=== PATIENT | male | born 1975 | race Caucasian/White ===

== ENCOUNTER 2018-06-19 20:47 | Emergency (ER) | payer OTHER, SELFPAY ==
[2018-06-19 20:48] VITALS: BP 116/77; PULSE 92; RESP 16; TEMP 36.9; O2SAT 97; BMI 35.2
--- NOTE | 2018-06-19 21:07 | RAD_ITS ---
STUDY: X-RAY - SOFT TISSUE NECK REASON FOR EXAM: Male, 43 years old. .Toothpick stuck in throat today. Unable to cough it out. TECHNIQUE: 2 view(s) of the neck were obtained. COMPARISON: None. FINDINGS: Normal visualized nasopharynx, oropharynx, hypopharynx. Normal epiglottis. Normal visualized subglottic tracheal air column. Normal prevertebral soft tissue structures. There are minimal degenerative changes of lower cervical spine The soft tissue structures are unremarkable. There is no visualized opaque foreign body. RAD/Neck for Soft Tissue IMPRESSION: Normal x-ray soft tissue neck. No visualized opaque foreign body. Electronically Signed: Rui Dennison DO at 21:22 EST Tel [phone], Service support ,
--- NOTE | 2018-06-19 21:10 | RAD_ITS ---
STUDY: X-RAY CHEST REASON FOR EXAM: Male, 43 years old. 2 SPECT, throat today. Unable to cough it out. TECHNIQUE: PA and lateral views of the chest. COMPARISON: July 03, 2017. FINDINGS: Lungs are well expanded. There is no focal mass or infiltrate. There is no demonstrated pleural abnormality. Normal size heart. Normal mediastinum and jean. Normal visualized pulmonary arteries. Normal visualized aortic arch and descending thoracic aorta. Normal visualized thoracic spine. Normal visualized ribs, clavicles, and shoulders. There is no demonstrated abnormality of the visualized soft tissue structures of the upper abdomen. RAD/Chest PA and Lateral IMPRESSION: No acute cardiopulmonary disease or interval change. There is no visualized opaque foreign body. Electronically Signed: Rui Dennison DO at 21:22 EST Tel [phone], Service support ,
--- NOTE | 2018-06-19 22:31 | CT_ITS ---
STUDY: CT SOFT TISSUE NECK WITHOUT CONTRAST REASON FOR EXAM: Male, 43 years old. Toothpick in throat RADIATION DOSAGE (If Supplied By Facility): CTDIvol = ( 23.60 ) mGy, DLP = ( 636.47 ) mGycm TECHNIQUE: The patient was scanned in a multi-detector CT scanner. High resolution transaxial imaging was performed without the administration of intravenous contrast material. Sagittal and coronal images were reconstructed. Individualized dose optimization techniques were used for this CT. COMPARISON: None. FINDINGS: Normal bilateral parotid glands. Normal bilateral manager generation spaces. Normal bilateral parapharyngeal spaces. Normal bilateral carotid spaces. Normal bilateral sublingual and submandibular glands and spaces. Normal visualized nasopharynx. Normal retropharyngeal space. Normal perivertebral space. Normal visualized bilateral faucial tonsils. The visualized tongue, tongue base and oropharynx are normal. The visualized cervical lymph nodes (levels I-) are within normal size limits, and maintain normal morphology. There is no demonstrated solid or cystic mass lesion. Within the left lateral oropharyngeal wall there is a small hyper attenuated structure measuring 6 mm which may be consistent with clinical history of embedded tooth pick Normal epiglottis, bilateral vallecula and hypopharynx. The pre-epiglottic and paraglottic adipose spaces are normal. Normal visualized bilateral piriform sinuses, aryepiglottic folds, vocal cords, and arytenoid-cricoid articulations. Normal subglottic trachea. Normal bilateral lobes of the thyroid gland. Normal visualized pulmonary apices. Normal visualized paranasal sinuses. Dorsal spine demonstrates moderate spondylosis CT/Soft Tissue Neck without Contr IMPRESSION: Linear hyperattenuated structure within the left lateral oropharyngeal wall which may be consistent with embedded toothpick. Clinical correlation recommended Electronically Signed: Oziel Ramirez MD at 23:00 EST , Service support ,
[2018-06-19 23:00] VITALS: BP 150/94; PULSE 82; RESP 18; O2SAT 98
[2018-06-20] MEDS: Cefazolin 2 GM in 0.9% Normal Saline 100 ML IV (00:05)
[2018-06-20 00:15] LABS: Absolute Lymphocyte Count 2.26 X10^3/ul (0.83-4.51); Absolute Neutrophil Count 3.8 X10^3/uL (2.0-7.7); Basophil# 0.03 X10^3/uL; Basophil% 0.4 % (0-1); Eosinophil# 0.28 X10^3/uL; Eosinophils% 3.8 % (0-5); Hematocrit 44.8 % (40-54); Hemoglobin 15.2 g/dl (13.0-16.5); Lymphocyte # 2.26 X10^3/ul (4.0); Lymphocyte % 30.8 % (19-41); Mean Corp Hgb Conc 33.9 g/gl (32-36); Mean Corpuscular Volume 85.5 fL (80-94); Mean Platelet Vol. 9.8 fl (6.2-12.0); Monocyte# 0.99 X10^3/uL; Monocyte% 13.5 % (0-10); Neutrophil # 3.76 X10^3/uL (2.7-7.7); Neutrophil % 51.2 % (47-70); POSITIVE COUNT NO; POSITIVE DIFFERENTIAL NO; POSITIVE MORPHOLOGY NO; Platelet Count 273 K/mm3 (150-450); RBC Distribution Width CV 12.9 % (11.6-14.6); Red Blood Count 5.24 M/mm3 (4.6-6.2); White Blood Count 7.3 K/mm3 (4.4-11.0)
--- NOTE | 2018-06-20 00:18 | ED.DCSUM_ITS ---
- ER Visit Summary Date of Service: 06/20/18 Chief Complaint: Foreign body in throat History of Present Illness: The patient is a 43 M who states that today around 1300 hrs. he was eating a wrap. He felt something in his throat and noticed that there was only one toothpick and believes that he is swallowed a toothpick and that is lodged in the throat. He denies any change in phonation. He denies any drooling. Symptoms have been constant. He points to the larynx as the source of his discomfort. Physical Examination: Afebrile vital signs are stable Gen: Well-nourished well-developed Head: Normocephalic atraumatic Eyes: Perrl EOMI ENT: TMs clear no rhinorrhea moist mucous membranes patient is laying back in the bed. There is no drooling. Neck: Supple no lymphadenopathy no JVD nontender CVS: Regular rate rhythm no murmurs normal S1-S2 Respiratory: No distress clear to auscultation bilaterally chest nontender Abdomen: Soft nontender nondistended normal bowel sounds no masses Back: Nontender Extremity: Nontender no edema Skin: Normal color no rash Neuro: alert orientated ?3 CN II-XII intact normal strength sensation reflexes gait cerebellar Psych: Normal affect normal mood Test Results: X-rays were obtained through nursing protocol. These were negative for foreign body. CT of the neck without contrast demonstrates a foreign body in the left pharyngeal tissue. Emergency Department Course and Treatment: There is no ENT coverage on today. Patient has been accepted to [facility]. Prior to transfer he received Ancef and basic labs were drawn. Impression: 1. Pharyngeal foreign body This note was generated with [employer] dictation software. It may contain incorrect words, spelling, and punctuation that were not noted in review of the chart prior to signing ED Disposition - Plan for ED Patient: Chief Complaint: Foreign Body Referrals: Mc Gunderson III, MD [Primary Care Provider] -
[2018-06-20 00:29] LABS: BUN 18 mg/dL (7-18); Creatinine, Serum 0.91 mg/dL (0.70-1.30); Estimated Creatinine Clearance 97.86 ml/min; Glucose 82 mg/dL (74-106)
[2018-06-20 00:30] LABS: Anion Gap 6 (5-15); BUN/Creat Ratio 19.8 RATIO (10-20); Calcium,Total 8.2 mg/dL (8.5-10.1); Chloride 105 mmol/L (98-107); EST Glomerular Filtration Rate 97 mL/min (>60); Est Glom Filt Rate - Afr Amer 117 mL/min (>60); Potassium 3.8 mmol/L (3.5-5.1); Sodium Level 138 mmol/L (136-145)
== END 2018-06-20 00:58 | disposition short-term general hospital (02) ==
PROVIDERS: Emergency Provider Emergency Medicine; Family Provider Family Medicine; PCP Family Medicine
DX: T17.228A Food in pharynx causing other injury, initial encounter (principal); X58.XXXA Exposure to other specified factors, initial encounter; Y93.9 Activity, unspecified; Y92.9 Unspecified place or not applicable; I10 Essential (primary) hypertension; Z87.19 Personal history of other diseases of the digestive system; Z79.899 Other long term (current) drug therapy
CPT/HCPCS: 70360; 70490; 71046; 80048; 85025; 96365; 99284; J7030

== ENCOUNTER → 2018-07-03 09:31 | Outpatient (CLI) | payer OTHER, SELFPAY ==
[2018-07-03 09:27] VITALS: BMI 35.2
--- NOTE | 2018-07-03 09:32 | RAD_ITS ---
STUDY: X-RAY - RIGHT SHOULDER REASON FOR EXAM: Male, 43 years old. Chronic right shoulder pain. TECHNIQUE: 3 view(s) of the shoulder. COMPARISON: None. FINDINGS: Normal glenohumeral articulation. Normal acromioclavicular joint. Normal acromion. Normal humeral head and visualized proximal humerus. The soft tissue structures are unremarkable. Right basilar atelectasis. RAD/Shoulder min 2 Views IMPRESSION: Normal x-ray examination of the shoulder. Right basilar atelectasis. Electronically Signed: Romie Fish MD at 15:44 EST Tel [phone], Service support ,
== END ==
PROVIDERS: Family Provider Family Medicine; PCP Family Medicine; Referring Provider Physician Assistant; Visit Provider Physician Assistant
DX: M25.511 Pain in right shoulder (principal)
CPT/HCPCS: 73030

== ENCOUNTER → 2018-07-12 06:37 | Outpatient (CLI) | payer OTHER, SELFPAY ==
[2018-07-03 09:27] VITALS: BMI 35.2
--- NOTE | 2018-07-12 06:41 | MRI_ITS ---
STUDY: MRI RIGHT SHOULDER REASON FOR EXAM: Anterior right shoulder pain, limited range of motion since August. TECHNIQUE: Standardized fat and water weighted pulse sequences were obtained in all 3 orthogonal planes. COMPARISON: Radiographs 07/03/2018. FINDINGS: There is mild supraspinatus tendinosis and a small intrasubstance partial-thickness tear of the distal supraspinatus tendon at the greater tuberosity insertion (T2 coronal image 13) measuring 0.2 cm in length. Normal infraspinatus tendon. Normal subscapularis tendon. Normal teres minor tendon. Normal supraspinatus muscle. Normal infraspinatus muscle. Normal subscapularis muscle. Normal teres minor muscle. Normal glenohumeral articulation. Normal humeral head and visualized proximal humerus. Normal biceps labral complex. There is mild tendinosis of the intracapsular long biceps tendon (T2 coronal images 15, 16). Normal labrum. Normal capsulo- ligamentous complex. There is mild acromioclavicular arthrosis without substantial undersurface osteophytes (T2 sagittal image 16). There is a Type I morphology (flat undersurface), with a mild anterior downsloping orientation. There is no subacromial-subdeltoid bursal fluid. Normal visualized coracohumeral and coracoacromial ligaments. Normal deltoid muscle. Normal trapezius muscle. MRI/Upper Ext Joint Only(Routine) IMPRESSION: Small intrasubstance partial-thickness tear and mild tendinosis of the supraspinatus tendon. Mild tendinosis of the long biceps tendon. Mild acromioclavicular arthrosis. No demonstrated SLAP lesion. Electronically Signed: Bismark Sharp MD at 8:22 EST Tel , Service support ,
--- OUTSIDE RECORDS SUMMARY | 2018-08-28 00:19 | XMS RPT_ITS ---
:1975 Author Organization OH[facility] Care Team Providers Name Role Phone KIT VILCHIS Admitting Unavailable KIT VILCHIS Attending Unavailable EMMANUEL GALLEGOS Primary Care Unavailable Cebul III, Mc Primary Care Unavailable Jase Jimenez Attending Unavailable Issa Paz Attending Unavailable Cebul IIIMc Referring Unavailable Issa Paz Attending Unavailable Issa Paz Referring Unavailable Cebul III, Mc Primary Care Unavailable Issa Paz Attending Unavailable Issa Paz Referring Unavailable Cebul III, Mc Primary Care Unavailable PROBLEMS PROBLEMS DATE TYPE CONDITION / CODE ATTENDING STATUS SOURCE 07/03/2018 Unknown M25.511 - Pain in Issa Paz Active [facility] right shoulder / Community M25.511(ICD-10) Hospital Repository 07/03/2018 Unknown S43.439A - Issa Paz Active [facility] Superior glenoid [facility] labrum lesion of Hospital unspecified Repository shoulder, initial encounter / S43.439A(ICD-10) 06/30/2018 Active OTH SPEC SX SIGNS SHUNDRY, Active [facility] INVLV CIRC [facility] R09.89(ICD-10) Repository 06/30/2018 Principle OTH FOREIGN OBJ SHUNDRY, Active [facility] Diagnosis PHAR OTH INJ INIT [facility] / T17.298A(ICD-10) Repository 06/30/2018 Secondary OTH SPEC SX SIGNS SHUNDRY, Active [facility] Diagnosis INVLV CIRC [facility] R09.89(ICD-10) Repository 06/30/2018 Secondary ESSENTIAL PRIMARY SHUNDRY, Active [facility] Diagnosis HYPERTENSION / [facility] I10(ICD-10) Repository 06/30/2018 Secondary PERSONAL HX OTH DZ SHUNDRY, Active [facility] Diagnosis DIGESTIVE SYSTEM / [facility] Z87.19(ICD-10) Repository 06/30/2018 Secondary ACQ ABSENCE OTH SHUNDRY, Active [facility] Diagnosis PART DIGESTV TRACT [facility] / Z90.49(ICD-10) Repository PROCEDURES PROCEDURES No Procedure Records FoundRESULTS RESULTS UPPER EXT JOINT Observed: 07/12/2018 Status: F Source: [place] ONLY(ROUTINE) 6:41 AM [facility] REPOSITORY [facility] Imaging Services [address] [place] [address] Upper Ext Joint Only(Routine) MR#: [id number] Acct: [id number] Name: JESUS WEISS Rep #: [id number] : 1975 M 43 From: Bismark Sharp MD PCP: Mc Gunderson III, MD Status: REG CLI Study: Upper Ext Joint Only(Routine) Date of Exam: 07/12/18 Exam# [id number] Ordering Dr: Issa Paz PA STUDY: MRI RIGHT SHOULDER REASON FOR EXAM: Anterior right shoulder pain, limited range of motion since August. TECHNIQUE: Standardized fat and water weighted pulse sequences were obtained in all 3 orthogonal planes. COMPARISON: Radiographs 07/03/2018. FINDINGS: There is mild supraspinatus tendinosis and a small intrasubstance partial-thickness tear of the distal supraspinatus tendon at the greater tuberosity insertion (T2 coronal image 13) measuring 0.2 cm in length. Normal infraspinatus tendon. Normal subscapularis tendon. Normal teres minor tendon. Normal supraspinatus muscle. Normal infraspinatus muscle. Normal subscapularis muscle. Normal teres minor muscle. Normal glenohumeral articulation. Normal humeral head and visualized proximal humerus. Normal biceps labral complex. There is mild tendinosis of the intracapsular long biceps tendon (T2 coronal images 15, 16). Normal labrum. Normal capsulo- ligamentous complex. There is mild acromioclavicular arthrosis without substantial undersurface osteophytes (T2 sagittal image 16). There is a Type I morphology (flat undersurface), with a mild anterior downsloping orientation. There is no subacromial-subdeltoid bursal fluid. Normal visualized coracohumeral and coracoacromial ligaments. Normal deltoid muscle. Normal trapezius muscle. MRI/Upper Ext Joint Only(Routine) IMPRESSION: Small intrasubstance partial-thickness tear and mild tendinosis of the supraspinatus tendon. Mild tendinosis of the long biceps tendon. Mild acromioclavicular arthrosis. No demonstrated SLAP lesion. Electronically Signed: Bismark Sharp MD at 8:22 EST Tel , Service support , CC: ANKUR Paz; Mc Gunderson III, MD Cylinder Die Machine Operator: Signed ORTHOPEDIC VISIT Observed: 07/05/2018 Status: F Source: [place] REPORT 11:57 AM [facility] REPOSITORY [facility] [address] [place] [address] OFFICE VISIT Date of Service: 07/03/18 MR#: [id number] Acct: [id number] Name: JESUS WEISS Rep #: [id number] : 1975 Provider: ANKUR Paz Age/Sex: 43/M Location: [facility] Status: Signed Intake Vital Signs07/03/18 Body Mass Index (BMI) 35.2 Intake Visit Reasons: RIGHT SHOULDER Is patient in pain?: Yes Pain scale (1-10): 6 Allergies venom-honey bee [bee venom (honey bee)] Allergy (Verified 06/19/18 20:48) Swelling Medications Lisinopril [Zestril] 10 mg PO DAILY #30 tab 07/04/17 [Rx Confirmed 06/19/18] PFSH Social History Smoking Status: Former smoker HPI RIGHT SHOULDER: Details: JESUS WEISS is a 43 year old M here today for right shoulder pain. Patient notes that he has had right shoulder pain since Aug with no known injury. He states that he lifts weights and might have lifted too heavy with a bench press. He has pain over his anterior shoulder. Patient has increased pain range of motion, throwing and weightlifting. He denies any deformity. Patient did a HEP for about 2 months which hasnt improved his shoulder. Patient denies any injections, MRI or xrays. Denies numbness, tingling or other associated symptoms. ROS Const Reports system reviewed and no additional complaints, except as docu Eyes Reports system reviewed and no additional complaints, except as docu ENT Reports system reviewed and no additional complaints, except as docu Card Reports system reviewed and no additional complaints, except as docu Resp Reports system reviewed and no additional complaints, except as docu GI Reports system reviewed and no additional complaints, except as docu Reports system reviewed and no additional complaints, except as docu Musc Reports joint pain Skin/Breast Reports system reviewed and no additional complaints, except as docu Neuro Yes system reviewed and no additional complaints, except as docu Psych Reports system reviewed and no additional complaints, except as docu Endo Reports system reviewed and no additional complaints, except as docu Ortho Exam Right Shoulder Skin/Wound: No ecchymosis Testing: Positive TTP Biceps (minimal), AROM-Forward Elevation 0-180, AROM-External Rotation at side 0-60 and AROM-External Rotation at 90 0-60; negative Hawkin's, Neer's, Speed's, TTP AC Joint, Yergason's, Apprehension Test, Sulcus Sign or empty can Internal Rotation: T12 SHOULDER: At this time patient has no evident abnormalities noted on inspection. He has no generalized or localized swelling of the shoulder. He has full range of motion in the shoulder and normal 5 out of 5 strength compared to the left side. He does not have any tenderness to the biceps and a negative speeds at the same time he does have a positive Hollis test with some minimal anterior shoulder tenderness. Assessment AND Plan Problems 1. Acute pain of right shoulder M25.511 2. Strain of right subscapularis muscle, initial encounter S46.863B 3. Superior glenoid labrum lesion of right shoulder, initial encounter S43.968M Plan Obtained Xrays of patient's right shoulder. Personally reviewed Xrays. There is no obvious fracture, dislocation, or lucency noted. See chart for further details. This time patient has no abnormalities on inspection of the shoulder. He has normal range of motion and 5 out of 5 strength. Minor anterior shoulder tenderness and a positive Hollis's really points more to a possible glenoid labral tear with possible subscapularis involvement. At this point we discussed options which include doing nothing, physical therapy, injection, or further imaging with MRI. 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 He has been using free weights as well as therapy bands for exercises. At this time being anterior shoulder tenderness I do not believe an injection is likely to provide him with great results. 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 He would strongly consider surgical intervention depending on the findings of the MRI. So because he has seen improvement playing rotator cuff exercises or with use of anti-inflammatories, we are going to order an MRI at this time. Patient will follow-up in the office to go over the MRI results. I did explain that our surgeon will be going on maternity leave and therefore he will not likely be able to have that done by the end of the year or the next 3 months. He states that he has a sooner if he is okay with possibly going somewhere else. He still would like to proceed with MRI today This note was generated with [employer] dictation software. It may contain incorrect words, spelling, and punctuation that were not noted in checking the note before signing. Orders Orders: Coding Level of Care Code Off vis,new,level 3 Diagnoses Acute pain of right shoulder M25.511 Chronicity: acute Strain of right subscapularis muscle, initial encounter S46.811A Encounter type: initial encounter Laterality: right Superior glenoid labrum lesion of right shoulder, initial encounter S43.431A Encounter type: initial encounter 07/05/18 1157 <Electronically signed by Issa PASCUAL> Date Issa PASCUAL Cosigner Signature: Date (if applicable) CC: SHOULDER MIN 2 VIEWS Observed: 07/03/2018 Status: F Source: [place] 9:33 AM [facility] REPOSITORY [facility] Imaging Services [address] [place] [address] Shoulder min 2 Views MR#: [id number] Acct: [id number] Name: JESUS WEISS Rep #: [id number] : 1975 M 43 From: Romie Fish MD PCP: Mc Gunderson III, MD Status: REG CLI Study: Shoulder min 2 Views Date of Exam: 07/03/18 Exam# [id number] Ordering Dr: Issa Paz STUDY: X-RAY - RIGHT SHOULDER REASON FOR EXAM: Male, 43 years old. Chronic right shoulder pain. TECHNIQUE: 3 view(s) of the shoulder. COMPARISON: None. FINDINGS: Normal glenohumeral articulation. Normal acromioclavicular joint. Normal acromion. Normal humeral head and visualized proximal humerus. The soft tissue structures are unremarkable. Right basilar atelectasis. RAD/Shoulder min 2 Views IMPRESSION: Normal x-ray examination of the shoulder. Right basilar atelectasis. Electronically Signed: Romie Fish MD at 15:44 EST Tel [phone], Service support , CC: ANKUR Paz; Mc Gunderson III, MD Cylinder Die Machine Operator: Signed EMERGENCY DEPARTMENT Observed: 06/20/2018 Status: F Source: [place] SUMMARY 6:51 AM [facility] REPOSITORY [facility] Medical Records Department [address] [place] [id number] Emergency Department Summary 06/20/18 0016 MR#: [id number] Acct: [id number] Name: JESUS WEISS Rep #: [id number] : 1975 43 From: Jase Jimenez DO PCP: Mc Gunderson III, MD Status: DEP ER - ER Visit Summary Date of Service: 06/20/18 Chief Complaint: Foreign body in throat History of Present Illness: The patient is a 43 M who states that today around 1300 hrs. he was eating a wrap. He felt something in his throat and noticed that there was only one toothpick and believes that he is swallowed a toothpick and that is lodged in the throat. He denies any change in phonation. He denies any drooling. Symptoms have been constant. He points to the larynx as the source of his discomfort. Physical Examination: Afebrile vital signs are stable Gen: Well-nourished well-developed Head: Normocephalic atraumatic Eyes: Perrl EOMI ENT: TMs clear no rhinorrhea moist mucous membranes patient is laying back in the bed. There is no drooling. Neck: Supple no lymphadenopathy no JVD nontender CVS: Regular rate rhythm no murmurs normal S1-S2 Respiratory: No distress clear to auscultation bilaterally chest nontender Abdomen: Soft nontender nondistended normal bowel sounds no masses Back: Nontender Extremity: Nontender no edema Skin: Normal color no rash Neuro: alert orientated 3 CN II-XII intact normal strength sensation reflexes gait cerebellar Psych: Normal affect normal mood Test Results: X-rays were obtained through nursing protocol. These were negative for foreign body. CT of the neck without contrast demonstrates a foreign body in the left pharyngeal tissue. Emergency Department Course and Treatment: There is no ENT coverage on today. Patient has been accepted to [facility]. Prior to transfer he received Ancef and basic labs were drawn. Impression: 1. Pharyngeal foreign body This note was generated with [employer] dictation software. It may contain incorrect words, spelling, and punctuation that were not noted in review of the chart prior to signing ED Disposition - Plan for ED Patient: Chief Complaint: Foreign Body Referrals: Mc Gunderson III, MD [Primary Care Provider] - What to do if you have Problems For any increased pain, shortness of breath, bleeding, nausea or vomiting, chest pain, or any unexpected problems, contact your Primary Care Provider. Call [facility] ([phone]) or report to the closest Emergency Room. Call 911 if necessary. 06/20/18 0651 <Electronically signed by Jase Jimenez DO> Date Jase Jimenez DO Cosigner Signature (If Indicated): Date CC: Mc Gunderson III, MD CBC W/DIFF, AUTOMATED Collected: 06/20/2018 Status: F Source: [place] 12:08 AM [facility] REPOSITORY TYPE CODE TESTS RESULT OUT OF RANGE REFERENCE UNITS LAB L100.1000 4.4-11.0 K/mm3 Normal WBC 7.3 LAB L100.1200 4.6-6.2 M/mm3 Normal RBC 5.24 LAB L100.1300 13.0-16.5 g/dl Normal HGB 15.2 LAB L100.1400 40-54 % Normal HCT 44.8 LAB L100.1500 80-94 fL Normal MCV 85.5 LAB L100.1600 27.0-32.0 pg Normal MCH 29.0 LAB L100.1700 32-36 g/gl Normal MCHC 33.9 LAB L100.1810 11.6-14.6 % Normal RDW CV 12.9 LAB L100.1820 35.1-43.9 fl Normal RDW SD 40.0 LAB L100.1900 150-450 K/mm3 Normal PLT 273 LAB L100.2000 6.2-12.0 fl Normal MPV 9.8 LAB L100.2100 47-70 % Normal NEUT% 51.2 LAB L100.2200 19-41 % Normal LY% 30.8 LAB L100.2300 0-10 % High MONO% 13.5 LAB L100.2400 0-5 % Normal EO% 3.8 LAB L100.2500 0-1 % Normal BASO% 0.4 LAB L100.2550 0.0-0.9 % Normal IM GRAN % 0.300 Result Comment: IG% - Immature Granulocytes (promyelocytes, myelocytes and metamyelocytes) > 1% indicates that a LEFT SHIFT is Present. LAB L100.2620 2.0-7.7 X10 3/uL Normal Absolute Neut 3.8 LAB L100.2720 0.83-4.51 X10 3/ul Normal Absolute Lymph 2.26 Performed By: #### L100.0100 #### [facility] [address] [place] [address]. [place], [address] BASIC METABOLIC Collected: 06/20/2018 Status: F Source: [place] PROFILE (BMP) 12:08 AM [facility] REPOSITORY TYPE CODE TESTS RESULT OUT OF RANGE REFERENCE UNITS LAB L501.0100 74-106 mg/dL Normal GLU 82 Result Comment: Please note revised GLUCOSE reference range effective 2017. LAB L501.1000 7-18 mg/dL Normal BUN 18 LAB L501.1100 0.70-1.30 mg/dL Normal CREAT,SERUM 0.91 Result Comment: The validity of the calculated GFR AND GFRAA in patients over 70 years has not been determined. Clinical correlation is essential. LAB L501.1110 >60 mL/min Normal EST GFR 97 Result Comment: Non- GFR Calc LAB L501.1115 >60 mL/min Normal EST GFR - AA 117 Result Comment: GFR Calc LAB L501.1255 ml/min Normal Estimated CRCL 97.86 LAB L501.1300 10-20 RATIO Normal BUN/CRE 19.8 LAB L501.2200 8.5-10 mg/dL Low .1 CA 8.2 LAB L501.5300 136-14 mmol/L Normal 5 NA 138 LAB L501.5600 3.5-5. mmol/L Normal 1 K 3.8 LAB L501.5900 98-107 mmol/L Normal CL 105 LAB L501.6100 21.0-3 mmol/L Normal 2.0 CO2 27.0 LAB L501.6200 5-15 Normal GAP 6 Performed By: #### L500.2500 #### [facility] [address] [facility] [place] [place], [address] SOFT TISSUE NECK Observed: 06/19/2018 Status: F Source: [place] WITHOUT CONTR 10:31 PM [facility] REPOSITORY [facility] Imaging Services [address] [place] [address] Soft Tissue Neck without Contr MR#: [id number] Acct: [id number] Name: JESUS WEISS Rep #: [id number] : 1975 M 43 From: Oziel Ramirez MD PCP: Mc Gunderson III, MD Status: DEP ER Study: Soft Tissue Neck without Contr Date of Exam: 06/19/18 Exam# [id number] Ordering Dr: Jase Jimenez DO ADDENDUM by Prem Tiwari on 06/20/18 at 0320 ADDENDUM Linear density in question is most likely benign calcification or salivary duct stone. A wooden toothpick would not the radiodense. Findings were discussed by telephone with ENT physician. Electronically Signed: Prem Tiwari MD at 3:20 EST , Service support , 06/20/18319 Date cc: Jase Jimenez DO; Mc Gunderson III, MD * Signed ADDENDUM by Prem Tiwari on 06/20/[address]/Soft Tissue Neck without Contr 06/20/18326 Date cc: Jase Jimenez DO; Mc Gunderson III, MD * Signed STUDY: CT SOFT TISSUE NECK WITHOUT CONTRAST REASON FOR EXAM: Male, 43 years old. Toothpick in throat RADIATION DOSAGE (If Supplied By Facility): CTDIvol = ( 23.60 ) mGy, DLP = ( 636.47 ) mGycm TECHNIQUE: The patient was scanned in a multi-detector CT scanner. High resolution transaxial imaging was performed without the administration of intravenous contrast material. Sagittal and coronal images were reconstructed. Individualized dose optimization techniques were used for this CT. COMPARISON: None. FINDINGS: Normal bilateral parotid glands. Normal bilateral continuous towel roller spaces. Normal bilateral parapharyngeal spaces. Normal bilateral carotid spaces. Normal bilateral sublingual and submandibular glands and spaces. Normal visualized nasopharynx. Normal retropharyngeal space. Normal perivertebral space. Normal visualized bilateral faucial tonsils. The visualized tongue, tongue base and oropharynx are normal. The visualized cervical lymph nodes (levels I-) are within normal size limits, and maintain normal morphology. There is no demonstrated solid or cystic mass lesion. Within the left lateral oropharyngeal wall there is a small hyper attenuated structure measuring 6 mm which may be consistent with clinical history of embedded tooth pick Normal epiglottis, bilateral vallecula and hypopharynx. The pre-epiglottic and paraglottic adipose spaces are normal. Normal visualized bilateral piriform sinuses, aryepiglottic folds, vocal cords, and arytenoid-cricoid articulations. Normal subglottic trachea. Normal bilateral lobes of the thyroid gland. Normal visualized pulmonary apices. Normal visualized paranasal sinuses. Dorsal spine demonstrates moderate spondylosis CT/Soft Tissue Neck without Contr IMPRESSION: Linear hyperattenuated structure within the left lateral oropharyngeal wall which may be consistent with embedded toothpick. Clinical correlation recommended Electronically Signed: Oziel Ramirez MD at 23:00 EST , Service support , CC: Jase Jimenez DO; Mc Gunderson III, MD Cylinder Die Machine Operator: Signed CHEST PA AND LATERAL Observed: 06/19/2018 Status: F Source: [place] 9:07 PM [facility] REPOSITORY [facility] Imaging Services [address] [place] [address] Chest PA and Lateral MR#: [id number] Acct: [id number] Name: JESUS WEISS Rep #: [id number] : 1975 M 43 From: Rui Dennison DO PCP: Mc Gunderson III, MD Status: REG ER Study: Chest PA and Lateral Date of Exam: 06/19/18 Exam# [id number] Ordering Dr: Adolfo Villatoro STUDY: X-RAY CHEST REASON FOR EXAM: Male, 43 years old. 2 SPECT, throat today. Unable to cough it out. TECHNIQUE: PA and lateral views of the chest. COMPARISON: July 03, 2017. FINDINGS: Lungs are well expanded. There is no focal mass or infiltrate. There is no demonstrated pleural abnormality. Normal size heart. Normal mediastinum and jean. Normal visualized pulmonary arteries. Normal visualized aortic arch and descending thoracic aorta. Normal visualized thoracic spine. Normal visualized ribs, clavicles, and shoulders. There is no demonstrated abnormality of the visualized soft tissue structures of the upper abdomen. RAD/Chest PA and Lateral IMPRESSION: No acute cardiopulmonary disease or interval change. There is no visualized opaque foreign body. Electronically Signed: Rui Dennison DO at 21:22 EST Tel [phone], Service support , CC: ED PHYSICIAN PROVIDER; Mc Gunderson III, MD Cylinder Die Machine Operator: Signed NECK FOR SOFT Observed: 06/19/2018 Status: F Source: [place] TISSUE 9:07 PM [facility] REPOSITORY [facility] Imaging Services [address] [place] [address] Neck for Soft Tissue MR#: [id number] Acct: [id number] Name: JESUS WEISS Rep #: [id number] : 1975 M 43 From: Rui Dennison DO PCP: Mc Gunderson III, MD Status: REG ER Study: Neck for Soft Tissue Date of Exam: 06/19/18 Exam# [id number] Ordering Dr: Provider,Ed P. STUDY: X-RAY - SOFT TISSUE NECK REASON FOR EXAM: Male, 43 years old. .Toothpick stuck in throat today. Unable to cough it out. TECHNIQUE: 2 view(s) of the neck were obtained. COMPARISON: None. FINDINGS: Normal visualized nasopharynx, oropharynx, hypopharynx. Normal epiglottis. Normal visualized subglottic tracheal air column. Normal prevertebral soft tissue structures. There are minimal degenerative changes of lower cervical spine The soft tissue structures are unremarkable. There is no visualized opaque foreign body. RAD/Neck for Soft Tissue IMPRESSION: Normal x-ray soft tissue neck. No visualized opaque foreign body. Electronically Signed: Rui Dennison DO at 21:22 EST Tel [phone], Service support , CC: ED PHYSICIAN PROVIDER; Mc Gunderson III, MD Cylinder Die Machine Operator: Signed PROGRESS Observed: 10/19/2017 Status: COMPLETED Source: [place] 6:17 PM [facility] REPOSITORY HNO ID: [id number] Author: Lynn Barclay) CHANA Oliva Service: (none) Author Type: Nurse Practitioner Type: Progress Notes Filed: 10/19/2017 6:23 PM Note Text: Subjective HPI Patient is a 42 year old male here today for a week long history of sore throat. States he had left over amoxicillin and used that at the onset but only had 3 doses. States the pain is worse at night but is constant. Denies recent URI. Nothing makes it better. No fever. No other concerns at this time. Review of Systems Constitutional: Negative for chills, fever and malaise/fatigue. HENT: Positive for sore throat. Respiratory: Negative. Cardiovascular: Negative. Musculoskeletal: Negative for myalgias. Neurological: Negative for headaches. All other systems reviewed and are negative. PAST MEDICAL HISTORY Diagnosis Date - Acute idiopathic pericarditis 07/17/2017 07/03/17 - Benign hypertension 03/25/2015 PAST SURGICAL HISTORY Procedure Laterality Date - APPENDECTOMY 2003 - VASECTOMY ALLERGIES Bees; Dilaudid [Hydromorphone] MEDICATIONS lisinopril (ZESTRIL, PRINIVIL) 20 mg tablet Take 1 tablet by mouth once daily. benzonatate (TESSALON PERLE) 100 mg capsule Take 1-2 capsules by mouth three times daily as needed. fluticasone (FLONASE) 50 mcg/actuation nasal spray Use 2 Sprays in each nostril once daily. Rinse mouth after use. ibuprofen (MOTRIN) 600 mg tablet Take 600 mg by mouth three times daily. No family history on file. Social History Substance Use Topics - Smoking status: Former Smoker - Smokeless tobacco: Former User Types: Chew - Alcohol use Yes Comment: weekends BP 122/94 Pulse 92 Temp 36.6 ?C (97.8 ?F) (Left Tympanic) Resp 18 Wt 101.6 kg (224 lb) BMI 34.06 kg/m2 Objective Physical Exam Constitutional: He is oriented to person, place, and time and well-developed, well-nourished, and in no distress. Vital signs are normal. HENT: Head: Normocephalic and atraumatic. Right Ear: Tympanic membrane, external ear and ear canal normal. Left Ear: Tympanic membrane, external ear and ear canal normal. Nose: Nose normal. Mouth/Throat: Uvula is midline, oropharynx is clear and moist and mucous membranes are normal. No oropharyngeal exudate, posterior oropharyngeal edema, posterior oropharyngeal erythema or tonsillar abscesses. Mildly injected Neck: Neck supple. Cardiovascular: Normal rate, regular rhythm and normal heart sounds. Pulmonary/Chest: Effort normal and breath sounds normal. He has no wheezes. He has no rales. Lymphadenopathy: Head (right side): No submental, no submandibular and no tonsillar adenopathy present. Head (left side): No submental, no submandibular and no tonsillar adenopathy present. He has no cervical adenopathy. Neurological: He is alert and oriented to person, place, and time. Skin: Skin is warm and dry. He is not diaphoretic. Psychiatric: Affect normal. Nursing note and vitals reviewed. ASSESSMENT/PLAN: 1. Sore throat - ICD9: 462, ICD10: J02.9 - suspect viral - Rapid Strep negative in the office today and Throat culture pending - overnight throat culture pending - Tessalon Perle (see order) - Flonase (see order) - Advise not using ABX unless advised by a health rn home care - Discussed supportive care treatment with fluids, rest and analgesia. - The patient may also use warm salt water gargles, throat lozenges and/or OTC throat spray as needed. - The patient should follow up in 3-5 days if symptoms persist or worsen - RAPID STREP TEST B/O - GROUP A STREPTOCOCCUS BY PCR - BENZONATATE 100 MG CAPSULE - FLUTICASONE 50 MCG/ACTUATION NASAL SPRAY,SUSPENSION Prescription instructions reviewed with patient as applicable. Patient advised if symptoms do not improve or if symptoms worsen sooner, to contact their primary care physician. Potential red flag symptoms discussed with the patient. Reviewed appropriate action plan to take if red flag symptoms occur. Patient agreeable to treatment plan. Lynn Oliva APRN.COPYRIGHT CLERK CNOV Observed: 10/19/2017 Status: COMPLETED Source: [place] 5:45 PM [facility] REPOSITORY Office Visit (UCW[facility]) JESUS WEISS ([id number]) 1975 M Date Time Provider Department 10/19/17 5:45 PM LYNN OLIVA) [facility] During your visit today, we recorded the following information about you: Temperature Pulse Respiration Blood pressure 97.8 degrees 92/minute 18/minute 122/94 Weight 101.6 kg Lynn Oliva APRN.CNP, APRN.CNP 10/19/2017 6:23 PM Signed Subjective HPI Patient is a 42 year old male here today for a week long history of sore throat. States he had left over amoxicillin and used that at the onset but only had 3 doses. States the pain is worse at night but is constant. Denies recent URI. Nothing makes it better. No fever. No other concerns at this time. Review of Systems Constitutional: Negative for chills, fever and malaise/fatigue. HENT: Positive for sore throat. Respiratory: Negative. Cardiovascular: Negative. Musculoskeletal: Negative for myalgias. Neurological: Negative for headaches. All other systems reviewed and are negative. PAST MEDICAL HISTORY Diagnosis Date - Acute idiopathic pericarditis 07/17/2017 07/03/17 - Benign hypertension 03/25/2015 PAST SURGICAL HISTORY Procedure Laterality Date - APPENDECTOMY 2003 - VASECTOMY ALLERGIES Bees; Dilaudid [Hydromorphone] MEDICATIONS lisinopril (ZESTRIL, PRINIVIL) 20 mg tablet Take 1 tablet by mouth once daily. benzonatate (TESSALON PERLE) 100 mg capsule Take 1-2 capsules by mouth three times daily as needed. fluticasone (FLONASE) 50 mcg/actuation nasal spray Use 2 Sprays in each nostril once daily. Rinse mouth after use. ibuprofen (MOTRIN) 600 mg tablet Take 600 mg by mouth three times daily. No family history on file. Social History Substance Use Topics - Smoking status: Former Smoker - Smokeless tobacco: Former User Types: Chew - Alcohol use Yes Comment: weekends BP 122/94 Pulse 92 Temp 36.6 ?C (97.8 ?F) (Left Tympanic) Resp 18 Wt 101.6 kg (224 lb) BMI 34.06 kg/m2 Objective Physical Exam Constitutional: He is oriented to person, place, and time and well-developed, well-nourished, and in no distress. Vital signs are normal. HENT: Head: Normocephalic and atraumatic. Right Ear: Tympanic membrane, external ear and ear canal normal. Left Ear: Tympanic membrane, external ear and ear canal normal. Nose: Nose normal. Mouth/Throat: Uvula is midline, oropharynx is clear and moist and mucous membranes are normal. No oropharyngeal exudate, posterior oropharyngeal edema, posterior oropharyngeal erythema or tonsillar abscesses. Mildly injected Neck: Neck supple. Cardiovascular: Normal rate, regular rhythm and normal heart sounds. Pulmonary/Chest: Effort normal and breath sounds normal. He has no wheezes. He has no rales. Lymphadenopathy: Head (right side): No submental, no submandibular and no tonsillar adenopathy present. Head (left side): No submental, no submandibular and no tonsillar adenopathy present. He has no cervical adenopathy. Neurological: He is alert and oriented to person, place, and time. Skin: Skin is warm and dry. He is not diaphoretic. Psychiatric: Affect normal. Nursing note and vitals reviewed. ASSESSMENT/PLAN: 1. Sore throat - ICD9: 462, ICD10: J02.9 - suspect viral - Rapid Strep negative in the office today and Throat culture pending - overnight throat culture pending - Tessalon Perle (see order) - Flonase (see order) - Advise not using ABX unless advised by a health rn home care - Discussed supportive care treatment with fluids, rest and analgesia. - The patient may also use warm salt water gargles, throat lozenges and/or OTC throat spray as needed. - The patient should follow up in 3-5 days if symptoms persist or worsen - RAPID STREP TEST B/O - GROUP A STREPTOCOCCUS BY PCR - BENZONATATE 100 MG CAPSULE - FLUTICASONE 50 MCG/ACTUATION NASAL SPRAY,SUSPENSION Prescription instructions reviewed with patient as applicable. Patient advised if symptoms do not improve or if symptoms worsen sooner, to contact their primary care physician. Potential red flag symptoms discussed with the patient. Reviewed appropriate action plan to take if red flag symptoms occur. Patient agreeable to treatment plan. Lynn Oliva APRN.COPYRIGHT CLERK Referring Provider: SELF [200] Allergies As of Date: 10/19/2017 Noted Allergy Reaction BEES 04/22/2015 10 - Anaphylaxis DILAUDID (HYDROMORPHONE) 03/11/2015 17 - Myalgia Date Reviewed: 10/19/2017 Reviewed by: Marci Garcia Ma - Fully Assessed Reason for Visit: Sore Throat [200] Primary Visit Diagnosis:Sore throat [J02.9] Order(s):RAPID STREP TEST B/O [[id number]] Order #: [id number] GROUP A STREPTOCOCCUS BY PCR [SQGASPCR] Order #: [id number] benzonatate (TESSALON PERLE) 100 mg capsuleTake 1- 2 capsules by mouth three times daily as needed.Disp: 30 capsuleRfl: 0 fluticasone (FLONASE) 50 mcg/actuation nasal sprayUse 2 Sprays in each nostril once daily. 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 SBO (small bowel obstruction) [K56.609] INVALID FOR*07/17/2017 More... Acute idiopathic pericarditis [I30.0] INVALID FOR* More... Prescriptions ordered this encounter Disp Refills Start End BENZONATATE 100 MG CAPSULE 30 c* 0 10/19/2017 Route: ORAL Sig: Take 1-2 capsules by mouth three times daily as needed. FLUTICASONE 50 MCG/ACTUATION NASAL S* 1 Jeevan* 11 10/19/2017 Route: EACH NOSTRIL Sig: Use 2 Sprays in each nostril once daily. Rinse mouth after use. Encounter Status:Closed by LYNN OLIVA CNP on 10/19/17 GROUP A STREP BY Collected: 10/19/2017 Status: F Source: [place] PCR 5:08 PM [facility] REPOSITORY TYPE CODE TESTS RESULT OUT OF REFERENCE UNITS RANGE LAB GASSRC Throat Swab GAS Specimen Source LAB PCRGAS Negative for Group A Strep Group A PCR Streptococcus by PCR. Result Comment: This test was developed and its performance characteristics determined by [facility] [place] [facility] [place] ([facility] It has not been cleared or approved by the FDA. -[facility] is regulated under CLIA as qualified to perform high-complexity testing. This test is used for clinical purposes. It should not be regarded as inv estigational or for research. Performed By: #### GASPCR #### [facility] [address] [address] ALLERGIES ALLERGIES DATE TYPE / NAME / CODE REACTION SEVERITY SOURCE CODE 06/19/2018 Drug venom-honey Swelling Unknown [place] Allergy/41 bee/[id number](RXNO Community [id number]([facility]) Repository 04/22/2015 Environ/42 BEES ANAPHYLAXIS [place] [id number]([facility]) [place] Repository 03/11/2015 DRUG HYDROMORPHONE Myalgia [facility] INGREDI/[address] [place] [address] Main [id number]([facility]) Repository Drug Dilaudid/8599(RXNOR Unknown [facility] Allergy/41 [facility] [id number]([facility]) ENCOUNTERS ENCOUNTERS ADMIT/DISCHARGE ACCOUNT NUMBER ADMITTING ENCOUNTER LOCATION SOURCE CLASS 07/12/2018 [id number] Ambulatory [facility] ding:MRI Repository 07/03/2018 [id number] Ambulatory [facility] ding:HPRAD Repository 07/03/2018/07/03/20 [id number] Ambulatory BMSBuilding: [place] [address] BMS.[facility] Repository 06/20/2018/06/20/20 [id number] SHUNDRY, Ambulatory Building:[address] [place] [address] KIT ericom: [place] [id number]: Hospital EDBED Repository 06/19/2018/06/20/20 [id number] Emergency [place] 18 [facility] ding:ED Repository 10/19/2017/10/21/19 [id number] Ambulatory [address] Repository PAYERS PAYERS ENCOUNTER GUARANTOR PAYER SUBSCRIBER SOURCE 07/12/2018 JESUS Blackburn Primary ART Lam [id number] Insurance:MEDICAL SNYDERDOB: [facility] [id number] Number: Repository [address]Aam: [phone] [id number] 1766 (HP) Date:0090-66-96CJ [address] [place] [address]FR: 07/12/2018 Secondary NOT GIVENUNK [place] Insurance:SELF PAY [facility] Number: Effective Repository Date:2018-07-04 07/03/2018 JESUS J Primary ART Lam [id number] Insurance:MEDICAL SNYDERDOB: [facility] [id number] Number: Repository [id number]: [phone] [id number] 1766 (HP) Date:6690-28-21YU [address] [address]QK: 07/03/2018 Secondary NOT GIVENUNK [place] Insurance:SELF PAY [facility] Number: Effective Repository Date:2018-07-03 07/03/2018 JESUS Blackburn Primary ART Lam [id number] Insurance:MEDICAL SNYDERDOB: [facility] 8615[place]31[place] Number: Repository [id number]: [phone] [id number] 1766 (HP) Date:3577-16-52HF [address] [address]SV: 07/03/2018 Secondary NOT GIVENUNK [place] Insurance:SELF PAY [facility] Number: Effective Repository Date:2018-07-03 06/20/2018 [facility]US [facility] [id number] Number: [id number] Repository [place] [id number] [place] Date:[id number] [place], [place] [address]Vmk: [phone], [place] [address]Wwb: (HP) [phone]: (HP)Tel: [phone] () 06/19/2018 Dickson J Primary ART Lam [id number] Insurance:MEDICAL SNYDERDOB: [facility] [id number] Number: Repository [id number]: [phone]) [id number] [phone] () Date:[id number] [address]WX: 06/19/2018 Secondary NOT GIVENDEBI Lam Insurance:SELF PAY [facility] Number: Effective Repository Date:2018-06-19
== END ==
PROVIDERS: Family Provider Family Medicine; PCP Family Medicine; Referring Provider Physician Assistant; Visit Provider Physician Assistant
DX: S43.439A Superior glenoid labrum lesion of unspecified shoulder, initial encounter (principal)
CPT/HCPCS: 73221

== ENCOUNTER 2019-12-02 14:42 | Emergency (ER) | payer OTHER, SELFPAY ==
[2018-09-03 14:04] VITALS: BMI 35.2
[2019-12-02 14:44] VITALS: BP 200/76; PULSE 103; RESP 16; TEMP 36.4; O2SAT 96; BMI 31.2
[2019-12-02] MEDS: Diphth,Pertuss(Acell),Tet Vac 0.5 ML Vial IM (15:31)
--- NOTE | 2019-12-02 15:58 | ED.VIS.UPPEX ---
History of Present Illness Chief Complaint: Laceration Narrative: Patient presenting secondary to an elbow laceration. Patient was painting and he lacerated his left elbow on a floor event. Patient's tetanus status is not up-to-date. Bleeding is mild was controlled with pressure. Mild amount of pain. No limitations of range of motion. Past Medical History - Allergies and Home Meds Allergies/Adverse Reactions: Allergies venom-honey bee [bee venom (honey bee)] Allergy (Verified 12/02/19 14:43) Swelling Primary Care Physician: Mc Gunderson III, MD [Primary Care Provider] - Past Medical History: - - Hypertension Surgical History: appendectomy Smoking Status: Former smoker - Family History Maternal Family History: Reports: - Additional Family History: crohns Review of Systems General: Denies: Fever Musculoskeletal: Reports: Extremity Pain Skin: Reports: Wounds Neurological: Denies: Weakness, Parasthesia, Numbness Hematologic: Denies: Easy bruising, Easy bleeding, Lymphadenopathy Physical Exam Vital Signs/Narrative: Vital Signs Temp Pulse Resp BP Pulse Ox 12/02/19 14:44 97.6 F L 103 H 16 200/76 H 96 Left Elbow: - - 4 cm laceration noted over the extensor surface of the patient's left elbow. Normal flexion extension pronation supination of the elbow. Normal distal pulses normal distal sensation. General: Well nourished, Well developed Head: Normocephalic, Atraumatic Eyes: EOMI ENT: No Trauma Neck: Nontender, Full ROM Cardiovascular: Regular rate, Regular rhythm Respiratory: No distress Skin: Trauma Neurological: Alert, Oriented x3 Psychological: Normal affect Diagnostic/Tx/Re-eval - Medical Decision Making Patient presented with an elbow laceration. Wound was closed as noted in the procedure note. Tetanus status was updated. Patient will present to primary care for suture removal in 10 to 14 days. Procedures - Lacerations No standard instances Length: 4 ft Depth: Skin Shape: Linear Prep: Sterile Conditions - 250 cc of sterile saline Laceration Repair: Lidocaine with epi, Sutures Number of Sutures/Lupis: 8 Suture Information: Ethilon, 4-0 - Running ED Disposition - Plan for ED Patient: Disposition: Home or Assisted Living Diagnosis: Laceration of left elbow Instructions: ED Laceration All Closures Referrals: Mc Gunderson III, MD [Primary Care Provider] - 10-14 Days suture removal
[2019-12-02] MEDS: BACITRACIN 15 GM Tube 1 APPLIC TOPICAL (16:51)
== END 2019-12-02 16:55 | disposition home or self-care (01) ==
PROVIDERS: Emergency Provider Emergency Medicine; PCP Family Medicine
DX: S51.012A Laceration without foreign body of left elbow, initial encounter (principal); W22.8XXA Striking against or struck by other objects, initial encounter; Y93.89 Activity, other specified; Y99.9 Unspecified external cause status; Z23 Encounter for immunization; I10 Essential (primary) hypertension; Z79.899 Other long term (current) drug therapy; Z87.891 Personal history of nicotine dependence
CPT/HCPCS: 12002; 90471; 90715; 99284

== ENCOUNTER 2022-03-02 17:17 | Observation (INO) | payer OTHER, SELFPAY ==
[2022-03-02 17:19] VITALS: BP 99/80; PULSE 148; RESP 16; TEMP 36.2; O2SAT 97; BMI 31.3
--- NOTE | 2022-03-02 17:51 | EKG12_ITS ---
Test Reason : cp Blood Pressure : / mmHG Vent. Rate : 101 BPM Atrial Rate : 101 BPM P-R Int : 120 ms QRS Dur : 098 ms QT Int : 360 ms P-R-T Axes : 048 074 -35 degrees QTc Int : 466 ms Sinus tachycardia with frequent Premature ventricular complexes ST & T wave abnormality, consider inferolateral ischemia Abnormal ECG Confirmed by VASILE PINEDA, KEVIN ([id number]), food editor RICHA CASTILLO ([id number]) on 03/03/2022 1:24:42 PM Referred By: Betito Confirmed By:KEVIN BURNETTE MD
[2022-03-02 18:10] LABS: Absolute Lymphocyte Count 2.74 X10^3/uL (0.83-4.51); Absolute Neutrophil Count 7.8 X10^3/uL (2.0-7.7); Basophil% 0.8 % (0-1); Eosinophil# 0.35 X10^3/uL; Eosinophils% 2.9 % (0-5); Hematocrit 48.9 % (40-54); Hemoglobin 17.5 g/dL (13.0-16.5); Lymphocyte # 2.74 X10^3/ul (0.83-4.51); Lymphocyte % 22.4 % (19-41); Mean Corp Hgb Conc 35.8 g/dL (32-36); Mean Corpuscular Hgb 31.3 pg (27.0-32.0); Mean Corpuscular Volume 87.3 fL (80-94); Mean Platelet Vol. 10.5 fl (6.2-12.0); Monocyte# 1.25 X10^3/uL; Monocyte% 10.2 % (0-10); NRBC Flagged by Analyzer 0 % (0-5); Neutrophil # 7.75 X10^3/uL (2.7-7.7); Neutrophil % 63.4 % (47-70); Platelet Count 287 K/mm3 (150-450); RBC Distribution Width CV 12.5 % (11.6-14.6); RBC Distribution Width SD 39.9 fl (35.1-43.9); White Blood Count 12.2 K/mm3 (4.4-11.0)
[2022-03-02 18:25] LABS: Anion Gap 6 (5-15); BUN 23 mg/dL (7-18); BUN/Creat Ratio 16.1 RATIO (10-20); Calcium,Total 9.1 mg/dL (8.5-10.1); Chloride 109 mmol/L (98-107); Creatinine, Serum 1.43 mg/dL (0.70-1.30); EST Glomerular Filtration Rate 56 mL/min (>60); Est Glom Filt Rate - Afr Amer 68 mL/min (>60); Estimated Creatinine Clearance 62.45 ml/min; Glucose 102 mg/dL (74-106); Potassium 3.5 mmol/L (3.5-5.1); Sodium Level 141 mmol/L (136-145); Troponin-I HS 7 pg/mL (3.0-78.0)
--- NOTE | 2022-03-02 18:37 | ED.VIS.CHEST ---
HPI History of Present Illness Chief Complaint: Chest Pain Informant: patient Onset/Context/Timing Onset: Hours Activity at onset: sudden Timing: Intermittent Quality: Positive for Aching, Heaviness, Pain and Pressure Location: Left Chest Current Severity: Gone Maximum Severity: Moderate Worsened By: Nothing Relieved By: Nothing Associated Symptoms: Positive for Dyspnea; Negative for Nausea, Vomiting, Diaphoresis, Cough, Fever, Acid Reflux or Palpitations Narrative Narrative: 46-year-old male history of hypertension, Crohn's disease but no cardiac history. There is extensive family history of prior MIs in both his father at age 60 and both grandparents are of heart disease. States either Monday night or Monday night he was just sitting or watching baseball game. Said he started get heaviness in his left chest that radiated to his arm is back and left shoulder and he said it felt like a pressure. He said he hoped away when he went to sleep but he was gladly woke up in the morning. He denies any cardiac history. He has had no recent exertional chest pain. No history of DVT or PE. No hemoptysis. The pain was not pleuritic. He has had no swelling in his legs. He spoke to his primary care physician who wanted to come in today to be evaluated. Prior Similar Symptoms: No Recent Illness/Hospitalization: No CVD Risk Factors: Positive for Hypertension; Negative for Diabetes, Hypercholesterolemia, Family History 1' </=55 or Smoking PE Risk Factors: Positive for Recent Travel/Surgery; Negative for Recent Immobilization, Prior DVT or PE, Cancer or OCP + Smoking + >/=35 TAD Risk Factors: Positive for Hypertension; Negative for Marfan's Syndrome or Family History [facility] Medical History Acute bronchitis, unspecified Hypertension URI (upper respiratory infection) Home Medications budesonide 3 mg capsule,delayed,extended release 9 mg PO DAILY 12/02/19 [History Last Taken Unknown] lisinopril 10 mg tablet 20 mg PO DAILY blood pressure 12/02/19 [History Last Taken Unknown] hydrochlorothiazide 12.5 mg capsule 12.5 mg PO DAILY 03/02/22 [History Last Taken Unknown] Allergy/AdvReac Type Severity Reaction Status Date / Time venom-honey bee Allergy Swelling Verified 03/02/22 17:20 [bee venom (honey bee)] Social History Smoking Status: Former smoker ROS ROS ED ROS Narrative Denies recent illness. Review of Systems ROS Unobtainable: Denies due to encephalopathy Constitutional Constitutional ED: Denies chills Eyes Eyes: Denies none ENT ENT ED: Denies ear pain Cardiovascular Cardiovascular: Reports as per HPI and chest pain Respiratory/Chest Respiratory/Chest: Denies cough Gastrointestinal Gastrointestinal: Denies abdominal pain Genitourinary Genitourinary ED: Denies dysuria Musculoskeletal Musculoskeletal: Denies arthralgias Integumentary Denies abscess Neurologic Neurologic: Denies headache(s) Psychiatric Psychiatric: Denies anxiety Endocrine Endocrinology: Denies cold intolerance Hematologic/Lymphatic Hematologic/Lymphatic: Denies easy bleeding Allergic/Immunologic Allergic/Immunologic ED: Denies mouth swelling EXAM Physical Exam Narrative Exam Narrative: 46-year-old no acute distress vital signs stable they have this pulse of 148 its not its around 100. I think is picking up the PVCs. Pulse ox 97% room air no signs hypoxia. H EENT exam unremarkable neck nontender. Lungs clear to auscultation bilaterally. Heart regular rhythm rate about 100 no murmur. Abdomen soft nontender. Chest wall nontender. Moving all 4 extremities. Calves nontender no edema no cords. Equal symmetrical radial pulses. Neurologically is awake and alert. Const Vital Signs: 03/02/22 17:19 03/02/22 17:56 03/02/22 18:47 Temperature 97.2 F L Temperature Source Temporal Pulse Rate 148 H Respiratory Rate 16 Respiratory Effort Normal Non-Labored Blood Pressure 99/80 Blood Pressure Mean 86 Pulse Ox 97 Oxygen Delivery Method Room Air Room Air 03/02/22 19:08 Temperature 97.9 F Temperature Source Temporal Pulse Rate 117 H Respiratory Rate 20 H Respiratory Effort Blood Pressure 140/78 H Blood Pressure Mean 98 Pulse Ox 97 Oxygen Delivery Method Room Air Positive well nourished; Negative for obese, cachectic, contractures or unkempt General Appearance ED: Negative for unkempt, cachectic, contractures or pallor Nutritional Appearance: Negative for cachectic or obese HEENT Reports moist mucous membranes normocephalic and atraumatic; Negative for trauma or tenderness Eyes PERRL and EOMs intact bilaterally General Eye ED: Negative for pale conjunctiva or scleral icterus Neck no lymphadenopathy, supple and no JVD General: Negative for tenderness Chest Wall inspection of chest normal and palpation of chest normal Chest: Negative for tenderness Resp normal respiratory effort and clear to auscultation bilaterally Effort and Inspection: respiratory distress Auscultation: Negative for rales, rhonchi or wheezes Cardio regular rate, regular rhythm, S1 normal heart sound, S2 normal heart sound and no murmurs Rate: Negative for bradycardia Rhythm: Negative for abnormal rhythm Peripheral Pulses: pulses 2+ throughout GI normal to inspection, nondistended, normoactive bowel sounds, soft to palpation, non-tender, non-distended and no masses Auscultation: Negative for hyperactive bowel sounds Back/Spine no CVA tenderness General Back: Negative for CVA tenderness Cervical Spine: Negative for cervical spine tenderness Extremity normal to inspection General Extremety ED: Negative for edema or pulses abnormal General Extremity: Negative for edema or pulses abnormal Neuro oriented x3, CN's II-XII intact bilaterally and no sensory deficits noted Sensorium / Orientation: awake, alert, oriented to person and oriented to place Motor Exam: strength 5/5 throughout Psych mental status grossly normal Appearance: Negative for unkempt Attitude: No agitated Mood & Affect: Negative for depressed, anxious or tearful Skin no rashes or lesions noted and no wounds General Skin Exam: Negative for jaundice or pallor Rashes: No rashes noted Trauma: Negative for abrasion Heart Score History: Moderately Suspicious ECG: Normal Age: >45 - <65 years Risk Factors: 1 or 2 Risk Factors Troponin: </= Normal Limit Score: 3 MDM MDM MDM Narrative Medical decision making narrative: 46-year-old male with a concerning story for chest pain that occurred at rest. Significant family history for heart disease. Patient will be admitted for further evaluation and stress testing tomorrow. I have the hospitalist on page. Patient doing well on repeat exam. Will be admitted to the hospitalist PCU. Lab Data Attestation: I reviewed the patient's lab results. Lab results narrative: CBC White count 12.2 H&H of 17 and 48. Platelets 287. Electrolytes gap is 6 BUN 23 creatinine slightly elevated 1.43. Glucose 102. Troponin 7. Chest x-ray unremarkable. Labs: Laboratory Results - last 24 hr 03/02/22 03/02/22 17:35 17:35 WBC 12.2 H RBC 5.60 Hgb 17.5 H Hct 48.9 MCV 87.3 MCH 31.3 MCHC 35.8 RDW Std Deviation 39.9 RDW Coeff of Abbie 12.5 Plt Count 287 MPV 10.5 Immature Gran % (Auto) 0.300 Neut % (Auto) 63.4 Lymph % (Auto) 22.4 [place] % (Auto) 10.2 H Eos % (Auto) 2.9 Baso % (Auto) 0.8 Absolute Neuts (auto) 7.8 H Absolute Lymphs (auto) 2.74 Nucleated RBC % 0 Sodium 141 Potassium 3.5 Chloride 109 H Carbon Dioxide 26.0 Anion Gap 6 BUN 23 H Creatinine 1.43 H Estim Creat Clear Calc 62.45 Est GFR (MDRD) Af Amer 68 Est GFR (MDRD) Non-Af 56 L BUN/Creatinine Ratio 16.1 Glucose 102 Calcium 9.1 Troponin I High Sens 7 Radiography Chest X-Ray - ED: 1 View, Read by ED Physician, Read by Radiologist, Heart, Lungs, Mediastinum, Bony Structures, No Acute Disease and Chronic Changes Diagnostic Testing: Clinical Impression(s) from Imaging Studies Chest X-Ray 03/02/22 18:58 IMPRESSION: There are no acute findings. Electronically Signed: Arnulfo Lozano MD at 18:17 EDT , Rhythm Strip Rhythm Strip: Sinus Tach Rate: 101 Ectopy: PVC(s) EKG Initial EKG: Attestation: I personally reviewed and interpreted this EKG as follows: Interpretation: Sinus Rhythm and Sinus Tachycardia Comments: Tachycardia rate of 101 no acute signs of [place]. Frequent PVCs. He does have as T T wave depression and inverted T waves in the inferior leads. No old EKG available for comparison. Discharge Plan Dx/Rx/DC Orders Clinical Impression: Chest pain, Abnormal ECG, History of hypertension Disposition Disposition: Acute Care Hospital [facility]
[2022-03-02] MEDS: Aspirin 325 MG Tablet PO (18:42)
--- NOTE | 2022-03-02 18:58 | RAD_ITS ---
STUDY: X-RAY CHEST REASON FOR EXAM: Male, 46 years old. chest pain TECHNIQUE: XR Chest 1 View COMPARISON: Prior comparison studies are not available for review at this time. FINDINGS: There is no demonstrated pleural abnormality. Normal size heart. Normal mediastinum and jean. Normal visualized pulmonary arteries. Normal visualized aortic arch and descending thoracic aorta. Normal visualized thoracic spine. Normal visualized ribs, clavicles, and shoulders. There is no demonstrated abnormality of the visualized soft tissue structures of the upper abdomen. RAD/Chest 1 View (Portable) IMPRESSION: There are no acute findings. Electronically Signed: Arnulfo Lozano MD at 18:17 EDT ,
[2022-03-02 19:08] VITALS: BP 140/78; PULSE 117; RESP 20; TEMP 36.6; O2SAT 97
--- NOTE | 2022-03-02 19:25 | PCM.HP.STD ---
HPI - General General Date of Admission: 03/02/22 Date of Service: 03/02/22 Chief Complaint: Chest pain - 2 days ago HPI Narrative JESUS WEISS, is a 46 M who presents with the above. Patient stated that 2 days ago, he started having severe substernal chest pain that radiated to his shoulder and back as well as down his arm. This lasted about 1 hour. It felt very much like he is gone for a workout and has been achy. He denied any diaphoresis or dizziness or palpitations. He went to sleep and woke up and was gone. He has a positive family history of HI in his dad diagnosed at the age of 60 years. He told his daughter and an aunt today and was asked to come to the emergency room. At time of being seen, he denied any chest pain or dizziness or palpitations. Vitals in the ED showed blood pressure 140/78, heart rate 86, pulse ox 97% on room air, temperature 97.9 F. WBC count of 12.2, hemoglobin 17.5, platelet count 287. Troponin is 7. BMP appears 4.5, magnesium is 2.4. Admitting chest x-ray is unremarkable. EKG shows normal sinus rhythm, PVCs, ST segment depression in the inferolateral leads. [facility] Medical History (Updated 03/02/22 @ 18:[address] Riley Washington MD) Acute bronchitis, unspecified Hypertension URI (upper respiratory infection) Home Medications lisinopril 10 mg tablet 20 mg PO DAILY blood pressure 12/02/19 [History Last Taken 03/02/22] hydrochlorothiazide 12.5 mg capsule 12.5 mg PO DAILY 03/02/22 [History Last Taken 03/02/22] infliximab 100 mg intravenous solution (Remicade) 100 mg IV .[id number] 03/02/22 [History Last Taken 1 Month Ago ~01/30/22] Allergy/AdvReac Type Severity Reaction Status Date / Time venom-honey bee Allergy Swelling Verified 03/02/22 17:20 [bee venom (honey bee)] Family History (Updated 03/02/22 @ 20:[address] Debora Wilcox MD) Father CAD (coronary artery disease) Heart disease Hypertension Mother No problems noted. Surgical History (Updated 03/02/22 @ 20:[address] Debora Wilcox MD) H/O resection of small bowel History of appendectomy History of hip replacement, total Social History Smoking Status: Former smoker ROS ROS Narrative Constitutional: Denies: Anorexia, Chills, Fever, Night Sweats, Weight Change Eyes: Denies: Blurred vision, Cataracts, Conjunctivae Inflammation, Pain, Redness, Vision Change HEENT: Denies: Difficulty Hearing, Difficulty Swallowing, Head Aches, Hearing Changes, Sinus Congestion, Sinus Drainage Cardiovascular: See HPI Respiratory: Denies: Cough, Shortness of breath at rest, Sputum production Gastrointestinal: Denies: Abdominal Pain, Nausea, Vomiting Genitourinary: Denies: Dysuria Musculoskeletal: Denies: Joint Pain, Joint stiffness, Joint swelling, Joint Tenderness Skin: Denies: Rash, Wounds Neurological: Denies: Numbness, Tingling, Focal weakness Vital Signs Vital Signs Vital Signs: 03/02/22 17:19 03/02/22 17:56 03/02/22 18:47 Temperature 97.2 F L Temperature Source Temporal Pulse Rate 148 H Respiratory Rate 16 Respiratory Effort Normal Non-Labored Blood Pressure 99/80 Blood Pressure Mean 86 Pulse Ox 97 Oxygen Delivery Method Room Air Room Air 03/02/22 19:08 Temperature 97.9 F Temperature Source Temporal Pulse Rate 117 H Respiratory Rate 20 H Respiratory Effort Blood Pressure 140/78 H Blood Pressure Mean 98 Pulse Ox 97 Oxygen Delivery Method Room Air Weight Weight: 93.44 kg Body Mass Index (BMI) 31.3 Physical Exam Narrative Physical exam: General: Alert, Oriented x3, Cooperative, No apparent distress HEENT: Atraumatic Oral: Moist Mucosa Neck: Supple Lungs: Clear to auscultation Cardiovascular: HS I+II, regular, no murmurs Abdomen: Bowel Sounds Present, Soft, Non Tender Extremities: No edema Skin: Bilateral anterior erythematous papular rash, patient stated from poison dylan 2 weeks ago, still itchy Neurological: Grossly intact Psych/Mental Status: Appropriate Results Lab / Micro Data Result Diagrams: 03/02/22 17:35 03/02/22 17:35 Labs: Laboratory Results - last 24 hr 03/02/22 17:35: WBC 12.2 H, RBC 5.60, Hgb 17.5 H, Hct 48.9, MCV 87.3, MCH 31.3, MCHC 35.8, RDW Std Deviation 39.9, RDW Coeff of Abbie 12.5, Plt Count 287, MPV 10.5, Immature Gran % (Auto) 0.300, Neut % (Auto) 63.4, Lymph % (Auto) 22.4, [place] % (Auto) 10.2 H, Eos % (Auto) 2.9, Baso % (Auto) 0.8, Absolute Neuts (auto) 7.8 H, Absolute Lymphs (auto) 2.74, Nucleated RBC % 0 03/02/22 17:35: Sodium 141, Potassium 3.5, Chloride 109 H, Carbon Dioxide 26.0, Anion Gap 6, BUN 23 H, Creatinine 1.43 H, Estim Creat Clear Calc 62.45, Est GFR (MDRD) Af Amer 68, Est GFR (MDRD) Non-Af 56 L, BUN/Creatinine Ratio 16.1, Glucose 102, Calcium 9.1, Troponin I High Sens 7 Rhythm Strip Rhythm Strip: Sinus Tach Rate: 101 Ectopy: PVC(s) Radiology Impression Chest X-Ray 03/02/22 18:58 IMPRESSION: There are no acute findings. Electronically Signed: Arnulof Lozano MD at 18:17 EDT , Assessment & Plan Assessment/Plan (1) Crohns disease: (2) HTN (hypertension): PLAN: Plan 1. Acute chest pain, atypical, in a known hypertensive patient with family history of HI Heart score of 6. EKG shows normal sinus rhythm, PVCs, ST segment depression in the inferolateral leads Admit to PCU, continue to monitor on telemetry, trend troponins aspirin 81 mg p.o. daily, Continue on statins, nitro as needed, 2D echo, stress test in a.m. 2. ELLIOTT, prerenal, secondary to dehydration Admitting creatinine is 1.43, previous creatinine was 0.91 Start IV fluids, hold lisinopril and hydrochlorothiazide Repeat BMP in a.m. 3. Hypertension, controlled, hold lisinopril hydrochlorothiazide on account of #2 Continue to monitor as needed 4. Leukocytosis, WBC count of 12.2, likely reactive, No acute source of infection, will trend 5. Bilateral anterior leg poison dylan rash, will apply hydrocortisone cream twice daily. 6. Elevated hemoglobin, 17.5, likely secondary to dehydration versus other causes including sleep apnea We will repeat hemoglobin in a.m. 7. Crohn's disease, continue budesonide and infliximab in the outpatient 8. DVT PPx- Heparin Sc Charges/Coding Visit Charges OBSV E&M: 04291 Initial observation care L3
[2022-03-02 19:33] VITALS: PULSE 86
[2022-03-02 20:09] LABS: Magnesium 2.4 mg/dL (1.6-2.6)
[2022-03-02 20:14] LABS: BNP,B-Type NATRIURETIC PEPTIDE 4.5 pg/mL (0-100)
--- NOTE | 2022-03-02 20:35 | ECHOD_ITS ---
Reason For Study: Chest pain Procedure This was a 2D Doppler, Color Flow transthoracic echocardiogram. Exam performed portable in patient room. Left Ventricle Normal left ventricle. The estimated ejection fraction is 55-60 %. Right Ventricle Normal right ventricle. Normal systolic function. Atria Normal left atrium. Normal right atrium. Mitral Valve The mitral valve is structurally normal. No prolapse or stenosis seen. No mitral valve insufficiency. Tricuspid Valve Normal tricuspid valve. Trivial tricuspid valve insufficiency. Aortic Valve Normal aortic valve. Pulmonic Valve The pulmonic valve is not well visualized. Great Vessels Normal aortic root. Pericardium/Pleural No pericardial effusion. MMode/2D Measurements & Calculations LVIDd: 4.6 cm IVSd: 1.3 cm Ao root diam: 2.9 cm LVIDs: 2.8 cm LVPWd: 1.1 cm RVDd: 3.4 cm FS: 39.6 % LAV(MOD-bp): 38.4 ml LVAd ap4: 31.6 cm2 LVAd ap2: 32.2 cm2 LAV(MOD-bp) Indexed: 18.8 ml/m2 LVLd ap4: 8.8 cm LVLd ap2: 8.7 cm LAV(MOD-sp2): 39.4 ml EDV(MOD-sp4): 92.7 ml EDV(MOD-sp2): 99.5 ml LAV(MOD-sp4): 33.5 ml EDV(sp4-el): 95.8 ml EDV(sp2-el): 100.9 ml LVAs ap4: 17.2 cm2 LVAs ap2: 17.2 cm2 LVLs ap4: 7.6 cm LVLs ap2: 7.8 cm ESV(MOD-sp4): 34.5 ml ESV(MOD-sp2): 32.7 ml ESV(sp4-el): 33.1 ml ESV(sp2-el): 32.1 ml EF(MOD-sp4): 62.8 % EF(MOD-sp2): 67.1 % EF(sp4-el): 65.4 % SV(MOD-sp4): 58.2 ml SV(MOD-sp2): 66.8 ml SV(sp4-el): 62.7 ml LA dimension(2D): 3.7 cm LA A4 area: 13.6 cm2 RA A4 area: 13.2 cm2 Doppler Measurements & Calculations MV E max misbah: 75.2 cm/sec Lat Peak E' Misbah: 13.2 cm/sec Med Peak E' Misbah: 11.2 cm/sec MV A max misbah: 98.9 cm/sec E/E' lat: 5.7 E/E' med: 6.7 MV E/A: 0.76 Ao V2 max: 139.4 cm/sec LV V1 max: 101.1 cm/sec PA V2 max: 163.2 cm/sec Ao max P.8 mmHg LV V1 max P.1 mmHg PA V2 mean: 104.0 cm/sec Ao V2 mean: 94.1 cm/sec Ao mean P.1 mmHg Ao V2 VTI: 28.7 cm ECHO/Echo Complete Interpretation Summary The estimated ejection fraction is 55-60 %. Normal LV systolic function No significant changes from previous Study Ordering Physician: Debora Wilcox Referring Physician: Jase Osborne Performed By: Shelley East RDCS
[2022-03-02 20:40] VITALS: PULSE 81
--- NOTE | 2022-03-02 20:40 | EKG12_ITS ---
Test Reason : AM EKG Blood Pressure : / mmHG Vent. Rate : 075 BPM Atrial Rate : 075 BPM P-R Int : 122 ms QRS Dur : 102 ms QT Int : 434 ms P-R-T Axes : 017 075 008 degrees QTc Int : 484 ms Sinus rhythm with occasional Premature ventricular complexes Prolonged QT Abnormal ECG When compared with ECG of 02-MAR-2022 17:37, MANUAL COMPARISON REQUIRED, DATA IS UNCONFIRMED Confirmed by ISABEL PINEDA, FIDEL ([id number]), editorial director RICHA CASTILLO ([id number]) on 03/03/2022 2:07:34 PM Referred By: Brenden Confirmed By:FIDEL HALL MD
--- NOTE | 2022-03-02 20:40 | EKG12_ITS ---
Test Reason : CP Admission Blood Pressure : / mmHG Vent. Rate : 081 BPM Atrial Rate : 081 BPM P-R Int : 122 ms QRS Dur : 102 ms QT Int : 396 ms P-R-T Axes : 014 073 -12 degrees QTc Int : 460 ms Normal sinus rhythm T wave abnormality, consider inferior ischemia Abnormal ECG When compared with ECG of 02-MAR-2022 17:37, Premature ventricular complexes are no longer Present T wave inversion no longer evident in Lateral leads Confirmed by ISABEL PINEDA, FIDEL ([id number]), brands editor RICHA CASTILLO ([id number]) on 03/09/2022 9:44:24 AM Referred By: Brenden Confirmed By:FIDEL HALL MD
[2022-03-02 20:43] VITALS: BMI 32.6
[2022-03-02 21:10] VITALS: BP 148/92; PULSE 94; RESP 18; TEMP 36.9; O2SAT 99
[2022-03-02 21:11] VITALS: PULSE 101
[2022-03-02] MEDS: Hydrocortisone 2.5% Crm 1 APPLIC TOPICAL (21:32)
[2022-03-02] MEDS: Lactated Ringers 1,000 ML 100 ML IV (21:32)
[2022-03-02] MEDS: Potassium Chloride Oral Tablet 20 MEQ PO (21:32)
[2022-03-02] MEDS: 0.9% Saline Lock 10 ML Syringe IV (21:39)
[2022-03-02 21:43] LABS: Troponin-I HS 9 pg/mL (3.0-78.0)
[2022-03-03 00:11] LABS: Troponin-I HS 9 pg/mL (3.0-78.0)
[2022-03-03 03:00] VITALS: PULSE 60
[2022-03-03 03:10] VITALS: BP 111/64; PULSE 68; RESP 18; TEMP 36.8; O2SAT 98
[2022-03-03 06:35] LABS: Absolute Lymphocyte Count 2.49 X10^3/uL (0.83-4.51); Absolute Neutrophil Count 3.4 X10^3/uL (2.0-7.7); Basophil# 0.08 X10^3/uL; Basophil% 1.1 % (0-1); Eosinophil# 0.46 X10^3/uL; Eosinophils% 6.3 % (0-5); Hematocrit 44.7 % (40-54); Lymphocyte # 2.49 X10^3/ul (0.83-4.51); Lymphocyte % 33.9 % (19-41); Mean Corp Hgb Conc 35.8 g/dL (32-36); Mean Corpuscular Hgb 31.6 pg (27.0-32.0); Mean Corpuscular Volume 88.3 fL (80-94); Monocyte# 0.89 X10^3/uL; Monocyte% 12.1 % (0-10); NRBC Flagged by Analyzer 0 % (0-5); Neutrophil # 3.39 X10^3/uL (2.7-7.7); Neutrophil % 46.2 % (47-70); Platelet Count 205 K/mm3 (150-450); RBC Distribution Width CV 12.9 % (11.6-14.6); RBC Distribution Width SD 41.7 fl (35.1-43.9); Red Blood Count 5.06 M/mm3 (4.6-6.2); White Blood Count 7.3 K/mm3 (4.4-11.0)
[2022-03-03 06:50] VITALS: BP 127/87; PULSE 66; RESP 18; TEMP 36.9; O2SAT 98
[2022-03-03 07:00] VITALS: PULSE 76
[2022-03-03 07:00] LABS: AST(SGOT) 19 U/L (15-37); Alanine Aminotransfer ALT/SGPT 27 U/L (16-61); Albumin, Serum 3.4 g/dL (3.2-5.0); Alkaline Phosphatase 27 U/L (45-117); Anion Gap 4 (5-15); BUN 19 mg/dL (7-18); BUN/Creat Ratio 20.4 RATIO (10-20); Calcium,Total 8.2 mg/dL (8.5-10.1); Chloride 104 mmol/L (98-107); Creatinine, Serum 0.93 mg/dL (0.70-1.30); EST Glomerular Filtration Rate 92 mL/min (>60); Est Glom Filt Rate - Afr Amer 112 mL/min (>60); Estimated Creatinine Clearance 92.79 ml/min; Globulin 3.3 g/dL (2.2-4.2); Glucose 91 mg/dL (74-106); Potassium 3.6 mmol/L (3.5-5.1); Protein, Total 6.7 g/dL (6.4-8.2); Sodium Level 137 mmol/L (136-145)
[2022-03-03] MEDS: Lactated Ringers 1,000 ML 100 ML IV (07:35)
[2022-03-03] MEDS: 0.9% Saline Lock 10 ML Syringe IV (10:48)
[2022-03-03 10:50] VITALS: BP 155/86; PULSE 75; RESP 16; TEMP 36.9; O2SAT 95
--- NOTE | 2022-03-03 14:30 | STRESSREP ---
Stress Test Report Treadmill myocardial perfusion stress test. Indication; 46-year-old patient who presented with symptoms of chest pain Patient had history taken in and family history of CAD.. Stress protocol: Resting EKG demonstrates. Normal sinus rhythm. Patient exercised according to standard Scott protocol for 11 minutes, achieving a work level of maximum METS 13.7 The resting heart rate of 76 bpm parish to a maximum heart rate of 144 bpm. This value represented 82% of the maximal age-predicted heart rate. The resting blood pressure of 140/90 mmHg. [place] to a maximum blood pressure of 180/82 mmHg. This exercise stress test was terminated due to peripheral muscle fatigue No symptoms of chest pain reported. Stress EKG showed[, no significant change from the resting EKG, with maximum heart rate of 107bpm. Arrhythmia frequent episode of PVCs and ventricular bigeminy noted. Symptoms: Patient had no symptoms of chest pain Blood pressure at rest: 140/90 mmHg blood pressure at the end of stress: 180/82 mmHg Myocardial perfusion protocol. 14.4 mCi ]of Technetium 99m Sestamibi was injected at rest. Following maximal stress 44.2 mCi ]of Technetium 99m sestamibi was injected. Stress images were obtained stress and rest images were reconstructed and compared in the short axis vertical and horizontal long axis. No gated images were done Perfusion SPECT analysis: Review of the images demonstrate normal uptake of sestamibi at rest, post stress images demonstrate similar uptake of sestamibi to the resting images, homogeneous tracer uptake With no evidence of reversible myocardial ischemia. Gated SPECT analysis: No gated study . Conclusion: Negative treadmill sestamibi myocardial perfusion study for reversible myocardial ischemia Frequent PVCs with ventricular bigeminy No symptoms of chest pain reported Patient reached only 82% of the predicted maximal heart rate, however there is no symptoms of chest pain and there was no significant ST?T depression. Sandra Mckeon MD,FACC,[facility]
--- NOTE | 2022-03-03 14:36 | DCINST_ITS ---
Discharge Instructions Diet Discharge Diet: Low fat / Low cholesterol Activity Discharge Activity: Return to Normal Activity Dressing / Incision Call your doctor if you observe: Shortness of breath, Fainting spells, Swelling in the ankles, Chest pain and Increased palpitations (irregular heartbeat) Follow Up Care Test Results: Test results from this visit will be discussed in further detail at your follow- up appointment, if applicable. Discharge Plan Admission Admit Date/Time: 03/02/22 19:18 Primary Reason for Your Visit: Chest Pain Attending Provider: Amor Norton Primary Care Provider: Jase Osborne NP Consulting Providers: Debora Wilcox Discharge Orders/Prescriptions Prescriptions: New atorvastatin 40 mg tablet 40 mg PO QHS Qty: 30 0RF Continued hydrochlorothiazide 12.5 mg capsule 12.5 mg PO DAILY infliximab [Remicade] 100 mg recon soln 100 mg IV .[id number] Changed lisinopril 10 MG tablet 30 mg PO DAILY 30 Days Qty: 90 0RF Referrals / Follow Up: Jase Osborne NP, PHYSICIAN ASSISTANT PSY[facility]ATRY-[facility] [Primary Care Provider] - Disposition Disposition (needs filled in before D/C Order can be placed): Home, Self Care
--- NOTE | 2022-03-03 14:44 | PCM.DC.SUM ---
Documented by User: MASHA Garcia 03/03/22 14:51 Providers Date of Admission: 03/02/22 Date of Discharge: 03/03/22 Primary Care Physician: MASHA Burk Reason For Visit: CHEST PAIN Diagnosis Discharge Diagnosis (1) Crohns disease: Status: Chronic Code(s): K50.90 - Crohn's disease, unspecified, without complications (2) HTN (hypertension): Status: Chronic Code(s): I10 - Essential (primary) hypertension (3) Chest pain: Status: Acute Code(s): R07.9 - Chest pain, unspecified Qualifiers: Chest pain type: unspecified Qualified Code(s): R07.9 - Chest pain, unspecified Medications at Discharge Home Medications hydrochlorothiazide 12.5 mg capsule 12.5 mg PO DAILY diuretic 03/02/22 infliximab 100 mg intravenous solution (Remicade) 100 mg IV .[id number] chrons 03/02/22 atorvastatin 40 mg tablet 40 mg PO QHS #30 tabs 03/03/22 lisinopril 10 mg tablet 30 mg PO DAILY blood pressure 30 days #90 tabs 03/03/22 Hospital Course Operations None Procedures Stress test Summary of Care Provided Minutes Spent on Discharge: 35 Hospital Course: Patient is a 46-year-old male who initially presented with chest pain that radiated to his left arm and jaw. Patient was admitted overnight and a stress test was completed this morning which demonstrates negative treadmill myocardial perfusion study for reversible myocardial ischemia, frequent PVCs with ventricular bigeminy noted. Patient did not report any symptoms of chest pain during stress test and there was no significant ST?T depression. Patient noted to be hypertensive during admission and lisinopril increased to 30 mg p.o. daily. Patient also discharged home on atorvastatin with instructions to follow-up with his primary care provider. Physical Exam Const alert, oriented x3 and no apparent distress General Appearance: cooperative HEENT normocephalic and head/scalp atraumatic Eyes conjunctivae normal and no scleral icterus Neck no lymphadenopathy and supple General: trachea midline Resp normal respiratory effort, normal air movement and clear to auscultation bilaterally Cardio regular rate, regular rhythm, S1 normal heart sound, S2 normal heart sound and peripheral pulses 2+ throughout GI normal to inspection, nondistended, normoactive bowel sounds, soft to palpation and non-tender Extremity normal capillary refill and no clubbing, cyanosis or edema Skin skin turgor normal Neuro no focal motor deficits and no sensory deficits noted Speech: speech normal Psych affect normal Weight / BMI Weight Weight: 208 lb 15.971 oz Body Mass Index (BMI) 32.6 ABG / Lab / Microbiology Data Result Diagrams: 03/03/22 06:10 03/03/22 06:10 Laboratory: Laboratory Results - last 24 hr 03/02/22 17:35: WBC 12.2 H, RBC 5.60, Hgb 17.5 H, Hct 48.9, MCV 87.3, MCH 31.3, MCHC 35.8, RDW Std Deviation 39.9, RDW Coeff of Abbie 12.5, Plt Count 287, MPV 10.5, Immature Gran % (Auto) 0.300, Neut % (Auto) 63.4, Lymph % (Auto) 22.4, [place] % (Auto) 10.2 H, Eos % (Auto) 2.9, Baso % (Auto) 0.8, Absolute Neuts (auto) 7.8 H, Absolute Lymphs (auto) 2.74, Nucleated RBC % 0 03/02/22 17:35: Sodium 141, Potassium 3.5, Chloride 109 H, Carbon Dioxide 26.0, Anion Gap 6, BUN 23 H, Creatinine 1.43 H, Estim Creat Clear Calc 62.45, Est GFR (MDRD) Af Amer 68, Est GFR (MDRD) Non-Af 56 L, BUN/Creatinine Ratio 16.1, Glucose 102, Calcium 9.1, Troponin I High Sens 7 03/02/22 17:35: Magnesium 2.4 03/02/22 17:35: B-Natriuretic Peptide 4.5 03/02/22 20:53: Troponin I High Sens 9 03/02/22 23:30: Troponin I High Sens 9 03/03/22 06:10: WBC 7.3, RBC 5.06, Hgb 16.0, Hct 44.7, MCV 88.3, MCH 31.6, MCHC 35.8, RDW Std Deviation 41.7, RDW Coeff of Abbie 12.9, Plt Count 205, MPV 10.0, Immature Gran % (Auto) 0.400, Neut % (Auto) 46.2 L, Lymph % (Auto) 33.9, [place] % (Auto) 12.1 H, Eos % (Auto) 6.3 H, Baso % (Auto) 1.1 H, Absolute Neuts (auto) 3.4, Absolute Lymphs (auto) 2.49, Nucleated RBC % 0 03/03/22 06:10: Sodium 137, Potassium 3.6, Chloride 104, Carbon Dioxide 29.0, Anion Gap 4 L, BUN 19 H, Creatinine 0.93, Estim Creat Clear Calc 92.79, Est GFR (MDRD) Af Amer 112, Est GFR (MDRD) Non-Af 92, BUN/Creatinine Ratio 20.4 H, Glucose 91, Calcium 8.2 L, Total Bilirubin 0.50, AST 19, ALT 27, Alkaline Phosphatase 27 L, Total Protein 6.7, Albumin 3.4, Globulin 3.3, Albumin/Globulin Ratio 1.0 Radiography Diagnostic Testing: Radiology Impression Chest X-Ray 03/02/22 18:58 IMPRESSION: There are no acute findings. Electronically Signed: Arnulfo Lozano MD at 18:17 EDT Reading Location ID and State: [address] [place] [address] , Service support , D/C Instructions Discharge Diet: Low fat / Low cholesterol Discharge Activity: Return to Normal Activity Call your doctor if you observe: Shortness of breath, Fainting spells, Swelling in the ankles, Chest pain and Increased palpitations (irregular heartbeat) Meaningful Use Info Meaningful Use Diagnoses (Choose all that apply): None applicable Discharge Plan Admission Admit Date/Time: 03/02/22 19:18 Primary Reason for Your Visit: Chest Pain Attending Provider: Amor Norton Primary Care Provider: Jase Osborne NP Consulting Providers: Debora Wilcox Discharge Orders/Prescriptions Prescriptions: New atorvastatin 40 mg tablet 40 mg PO QHS Qty: 30 0RF Continued hydrochlorothiazide 12.5 mg capsule 12.5 mg PO DAILY infliximab [Remicade] 100 mg recon soln 100 mg IV .[id number] Changed lisinopril 10 MG tablet 30 mg PO DAILY 30 Days Qty: 90 0RF Referrals / Follow Up: Jase Osborne NP, [facility] ASSISTANT-C [Primary Care Provider] - Disposition Disposition (needs filled in before D/C Order can be placed): Home, Self Care Documented by User: Dr. Amor Norton MD 03/03/22 15:59 Providers Date of Admission: 03/02/22 Reason For Visit: CHEST PAIN Diagnosis Discharge Diagnosis (1) Crohns disease: Status: Chronic Code(s): K50.90 - Crohn's disease, unspecified, without complications (2) HTN (hypertension): Status: Chronic Code(s): I10 - Essential (primary) hypertension (3) Chest pain: Status: Acute Code(s): R07.9 - Chest pain, unspecified Qualifiers: Chest pain type: unspecified Qualified Code(s): R07.9 - Chest pain, unspecified Medications at Discharge Home Medications hydrochlorothiazide 12.5 mg capsule 12.5 mg PO DAILY diuretic 03/02/22 infliximab 100 mg intravenous solution (Remicade) 100 mg IV .[id number] chrons 03/02/22 atorvastatin 40 mg tablet 40 mg PO QHS #30 tabs 03/03/22 lisinopril 10 mg tablet 30 mg PO DAILY blood pressure 30 days #90 tabs 03/03/22 Hospital Course Summary of Care Provided Hospital Course: Patient is a 46-year-old male who initially presented with chest pain that radiated to his left arm and jaw. Patient was admitted overnight and a stress test was completed this morning which demonstrates negative treadmill myocardial perfusion study for reversible myocardial ischemia, frequent PVCs with ventricular bigeminy noted. Patient did not report any symptoms of chest pain during stress test and there was no significant ST?T depression. Patient noted to be hypertensive during admission and lisinopril increased to 30 mg p.o. daily. Patient also discharged home on atorvastatin with instructions to follow-up with his primary care provider. This patient was seen in conjunction with CALL CENTER ASSISTANTTiffani. I have independently interviewed and examined the patient and reviewed pertinent history, examination findings, laboratory and plan of management. I have reviewed the note and agree with the documented findings with the few additional points. In brief, patient is 46 requestioned gentleman admitted with chest pain characteristic of angina although he was not exerting himself. Possible unstable angina. Serial isolated troponin negative. EKG does not show significant ST-T changes history of ischemia. Patient further had nuclear stress test Which I discussed with machine stoppage frequency checker Dr. Mckeon and he said the stress images did not show stress-induced ischemia. Patient is to control risk factors including obesity, hypertension, dyslipidemia and physical inactivity. FLP shows LDL 82, HDL 38. Lisinopril dose increased to 30 mg daily. Discharged on atorvastatin 40 mg high intensity dose. Follow-up PCP in 2 weeks. I have discussed my assessment with CALL CENTER ASSISTANT, Tiffani and orders have been reviewed. Physical Exam Narrative Seen and examined Hospital blood pressure, he had chest pressure on left chest while standing in the kitchen. Chest pain radiated to left shoulder and left neck. He had some mild shortness of breath. This was the first episode of chest pain. His chest pain episode was more suggestive of angina pain. General: Alert, Oriented x3, Cooperative, obesity grade 2, BMI 32.7 kg/m? HEENT: Atraumatic, PERRLA, EOMI, Normocephalic Oral: No Gingival or Mucosal Lesions/ Ulcerations Neck: Supple, No JVD, Negative Carotid Bruits Lungs: Air entry diminished in bilateral lung bases. No crepitation/rhonchi Cardiovascular: Regular rate, Regular Rhythm, Normal S1, Normal S2, No murmurs Abdomen: Bowel Sounds Present, Soft, Non Tender, Non-Distended : No renal angle tenderness. No suprapubic tenderness. Extremities: No edema, Capillary Refill Less than 3 Seconds Skin: No rashes, No breakdown Musculoskeletal: No Tenderness to Palpation of Joints or Extremities Neurological: Cranial nerves II-XII grossly intact, DTR 2+/4 and Symmetrical, Neuro grossly intact Psych/Mental Status: Normal Affect, Appropriate. ABG / Lab / Microbiology Data Result Diagrams: 03/03/22 06:10 03/03/22 06:10 Discharge Plan Admission Admit Date/Time: 03/02/22 19:18 Primary Reason for Your Visit: Chest Pain Attending Provider: Amor Norton Primary Care Provider: Jase Osborne NP Consulting Providers: [place],Jackman Discharge Orders/Prescriptions Prescriptions: New atorvastatin 40 mg tablet 40 mg PO QHS Qty: 30 0RF Continued hydrochlorothiazide 12.5 mg capsule 12.5 mg PO DAILY infliximab [Remicade] 100 mg recon soln 100 mg IV .[id number] Changed lisinopril 10 MG tablet 30 mg PO DAILY 30 Days Qty: 90 0RF Referrals / Follow Up: Jase Osborne NP, CALL CENTER ASSISTANT-C [Primary Care Provider] - Disposition Disposition (needs filled in before D/C Order can be placed): Home, Self Care Charges/Coding Visit Charges OBSV E&M: 12100 Observation care discharge
[2022-03-03 14:58] LABS: Cholesterol 139 mg/dL (200); High Density Lipoprotein 38 mg/dL; Triglycerides 97 mg/dL; Very Low Density Lipoprotein 19 mg/dL (5-40)
[2022-03-03 15:00] VITALS: PULSE 84
== END 2022-03-03 14:43 | disposition home or self-care (01) ==
LOC: ED 18:49 → PCU 19:41
PROVIDERS: Admitting Provider Internal Medicine; Emergency Provider Emergency Medicine; PCP Nurse Practitioner Family; Visit Provider Internal Medicine
DX: R07.89 Other chest pain (principal); N17.9 Acute kidney failure, unspecified; K50.90 Crohn's disease, unspecified, without complications; I10 Essential (primary) hypertension; Z87.891 Personal history of nicotine dependence; Z79.899 Other long term (current) drug therapy; Z82.49 Family history of ischemic heart disease and other diseases of the circulatory system; M79.603 Pain in arm, unspecified; L23.7 Allergic contact dermatitis due to plants, except food
CPT/HCPCS: 36415; 71045; 78452; 80048; 80053; 80061; 83735; 83880; 84484; 85025; 93005; 93017; 93306; 96360; 96361; 99218; 99285; A9500; J7120; A4216; G0378

== ENCOUNTER 2023-06-18 16:28 | Emergency (ER) | payer OTHER, SELFPAY ==
[2023-06-18 16:30] VITALS: BP 144/103; PULSE 95; RESP 16; TEMP 36.6; O2SAT 96; BMI 33.3
--- NOTE | 2023-06-18 16:34 | EX.ED.VIS.EY ---
HPI History of Present Illness Chief Complaint: Eye Problem Detail of Chief Complaint: Right eye pain. Informant: patient and spouse/S.O. Onset/Context/Timing Location: Right Eye Onset: Today and Hours Context: Sudden Onset Timing: Continuous Current Severity: Mild Maximum Severity: Mild Associated Symptoms Associated Symptoms - Eyes: Pain History of injury: Yes, Direct trauma and Foreign body Visual correction: Glasses Narrative Narrative: 48-year-old male was cutting wood with a circular saw and he believes a piece of a got in his right eye. He is complaining of pain to his right eye. This occurred hours ago around 1030 this morning. He wears glasses. No contacts. He did have eye LASEK surgery 20+ years ago. Prior similar symptoms: No Recent Illness/Hospitalization: No PFSH PFSH Medical History Abnormal ECG Acute bronchitis, unspecified Crohn's disease Hypertension URI (upper respiratory infection) Home Medications hydrochlorothiazide 12.5 mg capsule 12.5 mg PO DAILY diuretic 03/02/22 [History Last Taken 03/02/22] infliximab 100 mg intravenous solution (Remicade) 100 mg IV .[id number] chrons 03/02/22 [History Last Taken 1 Month Ago ~01/30/22] atorvastatin 40 mg tablet 40 mg PO QHS #30 tabs 03/03/22 [Rx Last Taken Unknown] lisinopril 10 mg tablet 30 mg (3 x 10 mg) PO DAILY blood pressure 30 days #90 tabs 03/03/22 [Rx Last Taken Unknown] Allergy/AdvReac Type Severity Reaction Status Date / Time venom-honey bee Allergy Swelling Verified 06/18/23 16:31 [bee venom (honey bee)] Family History Father CAD (coronary artery disease) Heart disease Hypertension Mother No problems noted. Surgical History H/O resection of small bowel History of appendectomy History of hip replacement, total Social History Smoking Status: Former smoker ROS ROS ED ROS Narrative Denies recent illness. Review of Systems ROS Unobtainable: Denies due to encephalopathy Constitutional Constitutional ED: Denies chills or fever(s) Eyes Eyes: Denies blurry vision ENT ENT ED: Denies ear pain Cardiovascular Cardiovascular: Denies chest pain Respiratory/Chest Respiratory/Chest: Denies cough or dyspnea Gastrointestinal Gastrointestinal: Denies abdominal pain Genitourinary Genitourinary ED: Denies dysuria or hematuria Musculoskeletal Musculoskeletal: Denies arthralgias or back pain Integumentary Denies abscess or Abrasions Neurologic Neurologic: Denies headache(s) Psychiatric Psychiatric: Denies anxiety or depression Hematologic/Lymphatic Hematologic/Lymphatic: Denies easy bleeding, easy bruising or lymphadenopathy Allergic/Immunologic Allergic/Immunologic ED: Denies mouth swelling, tongue swelling or urticaria EXAM Physical Exam Narrative Exam Narrative: 48-year-old male sitting upright in bed. Vital signs are stable afebrile. He has had over his eyes. He has photophobia. HEENT exam no trauma. Dry mandelate motions are intact. Both the upper and lower lids of both eyes were unremarkable. No foreign body noted. No drainage or discharge. Pupils round reactive light. Extra motions are intact. No other facial trauma. Lungs clear. Heart regular rhythm. Otherwise exam unremarkable. Placed in his right eye. Once his pain relief is much better. I then placed fluorescein. Did a slit-lamp examination of the right eye. Shows a corneal abrasion on the border of his iris from midnight to about 2:00. No foreign body. No corneal ulcer. No discharge. Otherwise looks good. I discussed the diagnosis and treatment with he and his . Const Vital Signs: 06/18/23 16:30 Temperature 97.9 F Temperature Source Temporal Pulse Rate 95 Respiratory Rate 16 Blood Pressure 144/103 H Blood Pressure Mean 116 Pulse Ox 96 Oxygen Delivery Method Room Air Positive well nourished and well developed; Negative for cachectic, contractures or unkempt General Appearance ED: well developed and NAD; Negative for unkempt, cachectic or contractures Nutritional Appearance: Negative for cachectic HEENT Denies other atraumatic; Negative for trauma, tenderness or other Nose: external nose normal Neck no lymphadenopathy, supple and no JVD General: Negative for tenderness Resp normal respiratory effort, no retractions, no use of accessory muscles and clear to auscultation bilaterally Cardio regular rate, regular rhythm, S1 normal heart sound and S2 normal heart sound GI non-tender, non-distended and no masses Palpation: soft Extremity normal to inspection General Extremety ED: Negative for edema General Extremity: Negative for edema Neuro oriented x3, CN's II-XII intact bilaterally and moves all extremities Sensorium / Orientation: alert, oriented to person, oriented to place and oriented to time; Negative for orientation impaired Motor Exam: strength 5/5 throughout Psych Appearance: Negative for unkempt Attitude: No agitated Mood & Affect: Negative for depressed, anxious or tearful Skin no wounds Lesions: no lesions Rashes: no rashes Image ED - Eye Diagram: 1. Abrasion on the border of the iris from midnight to 2:00 2. Same MDM MDM MDM Narrative Medical decision making narrative: 48-year-old male was using a circular saw on wood and may have either a right eye corneal abrasion or foreign body or both. Tetracaine will be applied to his right eye to help with pain relief fluorescein and slit-lamp examination performed. He wears glasses. No contacts. History & Record Review Discussion w/independent historian: Patient and Family Discharge Plan Triage Chief Complaint: Eye Problem ED Provider: Riley Washington Dx/Rx/DC Orders Clinical Impression: Injury of conjunctiva and corneal abrasion of right eye w/o FB Instructions: ED Corneal Abrasion Prescriptions: No Action hydrochlorothiazide 12.5 mg capsule 12.5 mg PO DAILY infliximab [Remicade] 100 mg recon soln 100 mg IV .[id number] atorvastatin 40 mg tablet 40 mg PO QHS Qty: 30 0RF lisinopril 10 MG tablet 30 mg PO DAILY 30 Days Qty: 90 0RF Primary Care Provider: PodlogPetra ho NP Referrals: Charlie Horton MD [Med Staff - Active Staff] - 3-5 Days Petra Kimball NP, UPHOLSTERY TECHNICIAN-C [Primary Care Provider] - Activity Restrictions/Additional Instructions: You have a corneal abrasion in your right eye. This should progressively get better. Apply the eye ointment twice a day. Morning and evening to prevent infection and to aid in lubrication of the eye. Use for the next 3 days. Sunglasses to prevent glare. Motrin and Tylenol for pain. The eyedrops 2 drops every 70 hours to prevent pain. You must stop using them after 24 hours because a present healing. With the eye doctor to ensure this is improving. Disposition Disposition: Home, Self Care
[2023-06-18] MEDS: Fluorescein 1 MG STRIP 1 STRIP RIGHT EYE (16:37)
[2023-06-18] MEDS: Tetracaine 0.5% Ophthalmic Bottle 1 DRP RIGHT EYE (16:38)
[2023-06-18] MEDS: Neomycin/Bacitracin/Polymyxin Opth. Ointment 1 APPLIC RIGHT EYE (17:19)
== END 2023-06-18 17:21 | disposition home or self-care (01) ==
PROVIDERS: Emergency Provider Emergency Medicine; PCP Nurse Practitioner Primary Care; Visit Provider Emergency Medicine
DX: S05.01XA Injury of conjunctiva and corneal abrasion without foreign body, right eye, initial encounter (principal); X58.XXXA Exposure to other specified factors, initial encounter; I10 Essential (primary) hypertension; Z97.3 Presence of spectacles and contact lenses; Z79.899 Other long term (current) drug therapy; Z87.891 Personal history of nicotine dependence
CPT/HCPCS: 99282